=== PATIENT | female | born 1955 | race Caucasian/White ===

== ENCOUNTER 2017-11-13 14:30 | Outpatient (RCR) | payer MEDICAID, SELFPAY ==
--- NOTE | 2017-08-24 08:00 | HP.OTEVAL ---
Patient's Visit Information LUIS MIGUEL SIDDIQUI is a 62 year old F, referred to Occupational Therapy by Uday Roth DO,, with a diagnosis of left wrist fx. Date of Evaluation: 08/23/17 Occupational Therapist: MASSIMO March/Thalia, T - Subjective Subjective: pt states she was walking from her yard to her car and suffered a fall on and had sx for left wrist fx (ORIF) on . pt state she had the cast removed tues. and her hand is tender and sore- pt states she is currently working at [employer]. Pt states she is not using her left hand for any work tasks- Daily tasks are challenging and she is concerned with her limited finger and wrist ROM. - Pain left wrist 5 Pain Intensity Range: 0, 7 - Objective Objective/Observation: pt demo with edeam and limited ROM of left digits and wrist - ROM Forearm: right WNL left supination 0 Wrist: right 65/65 left 20/35 - Strength Surface Room Shop Optician: right 60 left 0 - Edema PIP: right MF 5.5 left 6.5 Other: mcp right 19cm left 20cm - Hand/Wrist Evaluation Total Score of Pain & Functional Sections: 61 - Goals Goal:: pt will demo a increae in left senior power scheduler strength to 40# or greater to increase her ind. with BADLS and IADLS. Goal:: pt will demo a increase in digit ROM by demo the ability for form a composite fist to manipulate fasteners, buttons and zippers. pt will demo a increase in left foream supination to increase her ind. with receiving money by d/c. pt will demo a increase in left wrist ROM by 30 degress to increase her ind. with BADLS and IADLS by d/c Goal:: pt will report no pain greater than 2/10 with use of left hand for BADLS and IADLS Goal:: pt will demo the ability to manipulate money with left hand by D/C to increase her ind.with buying products. Goal:: pt will demo a recuction in left hand/digit edema by 1cm to increase pts functional use of left hand by/D/C Goal:: pt will demo understanding of scar growth and mtg by end of 3rd. session to decrease risk of tendon adhesions or complications. - Rehabilitation General Assessment: s/p ORIF Rehabilitation Potential: Good - Anticipated Interventions Anticipated Interventions: A/AAROM/PROM, Strengthening, Edema Control, Scar Care, Triggerpoint Release, Modalities - Visit Plan Frequency: 2-3x /Week Duration: 6 Weeks General Plan: OT will initiate tx of manula edema mobilization MEM to assist pt in a recuction of left hand edema. Will cont tx with ROM and progress to strengthening as able. This inital eval pt was ed. on PROM of wrist/digits and forea. Along with scar mtg and contrast bath. pt demo understanding. TEXT: Thank you for the opportunity to evaluate your patient. For Medicare and Medicare HMO plans, please review the plan of care and approve it. It will need to be FAXED BACK to us at [phone] for Medicare purposes. Please let me know if there are questions or concerns regarding this plan of care. Physician Signature: Date:
--- NOTE | 2017-11-13 14:57 | HP.OTDCSUM ---
HP - OT D/C Summary It has been my pleasure to treat LUIS MIGUEL SIDDIQUI under orders from Uday Roth DO, for the diagnosis of left wrist fx for a total of 20 visit(s). Please see the following information for a summary of their discharge status. - Overall Improvement % Improvement: 75 - Objective Objective/Function: Completed reassessment. Noted no pain. ROM measurements taken and are as follows: L wrist flex 0-57, l ext 0-45, MCP L (2-5th) 17-64, 11-72, 7-71, 23-72; L PIP (2-5th) 2-5th 0-82, 0-92, 11-92, 7-78. Completed strength assessment as follows on foundation relations manager R 51, L 40; lateral R 8, L 7; three jaw R 7, L 5; tip pinch R 5, L 4. Pain 0/10 and minimal. Wrist appeared stiff. Previous reassessment last session. Measurements were as follows: ROM is as follows: flexion R 0-85, L 0-66; ext R 0-46, L 0-45. L D2 MCP 5-72, L PIP 0-85. Strength measurements are as follows: foundation relations manager R 81, L 19; lateral R 14, L 8; three jaw R 9, L 6; tip R 7, L 5. Some decreased ROM measurements frm last session compared to todays but is to continue HEP to address. - Goals Patient Goals: Regain Mobility, Regain Strength, Decrease Pain, Decrease Swelling/Stiffness, Improve Fine Motor Skills, Use Hand/Wrist/Arm Normally Again, Increase ROM Goal:: pt will demo a increae in left foundation relations manager strength to 40# or greater to increase her ind. with BADLS and IADLS. Goal:: pt will demo a increase in digit ROM by demo the ability for form a composite fist to manipulate fasteners, buttons and zippers. pt will demo a increase in left foream supination to increase her ind. with receiving money by d/c. pt will demo a increase in left wrist ROM by 30 degress to increase her ind. with BADLS and IADLS by d/c Goal:: pt will report no pain greater than 2/10 with use of left hand for BADLS and IADLS Goal:: pt will demo the ability to manipulate money with left hand by D/C to increase her ind.with buying products. Goal:: pt will demo a recuction in left hand/digit edema by 1cm to increase pts functional use of left hand by/D/C Goal:: pt will demo understanding of scar growth and mtg by end of 3rd. session to decrease risk of tendon adhesions or complications. - Plan Plan: Pt. will be d/c' d today. She is doing well and pain is minmal. She is to contact with questions and concerns and continue HEP. - D/C Information If there are questions or concerns regarding this patient's occupational therapy, please fell free to call me at [phone]. Thank you for the referral of this patient. Sincerely, Fouzia Ulrich
== END 2017-11-13 19:00 | disposition home or self-care (01) ==
LOC: OT 14:30
PROVIDERS: Family Provider Internal Medicine; PCP Internal Medicine; Visit Provider Orthopaedic Surgery
DX: Z98.890 Other specified postprocedural states (principal)
CPT/HCPCS: 97018; 97110; 97140; 97166; 97530; 97760

== ENCOUNTER 2018-04-05 15:45 | Emergency (ER) | payer MEDICAID, SELFPAY ==
[2018-04-05 15:45] VITALS: BP 158/93; PULSE 88; RESP 18; TEMP 36.7; O2SAT 98; BMI 28.3
--- NOTE | 2018-04-05 15:58 | ED.DEP ---
ED Disposition - Plan for ED Patient: Chief Complaint: Flank Pain Instructions: ED Shingles Prescriptions: Hydrocodone Bitart/Apap 5-325 [[place] 5MG-325MG] 1 tablet PO Q4H PRN PRN 2 Days #10 tablet PRN Reason: Pain Acyclovir 800 mg PO 5X/DAY #7 days Referrals: Marielle Oewns MD [Primary Care Provider] -
--- NOTE | 2018-04-05 16:00 | DCINST.ED_ITS ---
ED Disposition - Plan for ED Patient: Chief Complaint: Flank Pain Instructions: ED Shingles Prescriptions: Hydrocodone Bitart/Apap 5-325 [[place] 5MG-325MG] 1 tablet PO Q4H PRN PRN 2 Days # 10 tablet PRN Reason: Pain Acyclovir 800 mg PO 5X/DAY #7 days Referrals: Marielle Owens MD [Primary Care Provider] -
--- NOTE | 2018-04-05 16:04 | ED.DCSUM_ITS ---
- ER Visit Summary Date of Service: 04/05/18 Chief Complaint: Left flank pain History of Present Illness: The patient is a 62 F presenting with left flank pain which started yesterday. She states pain starts in the left back and radiates to the left lower quadrant. She has no nausea, vomiting, diarrhea. No fever. No urinary complaints. No previous similar symptoms. No other complaints. Physical Examination: Vitals are stable. Patient is afebrile. Alert no acute distress. HEENT exam is unremarkable. Neck is supple. Lungs are clear and equal bilaterally. Heart is regular rate and rhythm. Abdomen is soft nontender nondistended. No rebound or guarding Back: Erythematous rash with small vesicles consistent with shingles left flank. Extremities are unremarkable. Skin is warm and dry. No focal neurologic deficit. Remainder of exam is unremarkable. Emergency Department Course and Treatment: Patient was given a prescription for acyclovir and [place]. She is advised to follow-up with her primary care physician. Advised return to ED if worsening complaints. Disposition: Discharge home Impression: Herpes zoster This note was generated with [employer] dictation software. It may contain incorrect words, spelling, and punctuation that were not noted in review of the chart prior to signing ED Disposition - Plan for ED Patient: Chief Complaint: Flank Pain Instructions: ED Shingles Prescriptions: Hydrocodone Bitart/Apap 5-325 [[place] 5MG-325MG] 1 tablet PO Q4H PRN PRN 2 Days # 10 tablet PRN Reason: Pain Acyclovir 800 mg PO 5X/DAY #7 days Referrals: Marielle Owens MD [Primary Care Provider] -
[2018-04-05] MEDS: Acyclovir 800 MG Tablet PO (16:14)
== END 2018-04-05 16:16 | disposition home or self-care (01) ==
PROVIDERS: Emergency Provider Emergency Medicine; Family Provider Internal Medicine; PCP Internal Medicine
DX: B02.9 Zoster without complications (principal); K21.9 Gastro-esophageal reflux disease without esophagitis
CPT/HCPCS: 99283

== ENCOUNTER 2018-07-24 08:47 | Day surgery (SDC) | payer MEDICAID, SELFPAY ==
[2018-06-28 10:28] VITALS: BP 147/83; PULSE 75; RESP 14; TEMP 36.2; O2SAT 97; BMI 28.1
[2018-07-24 09:26] VITALS: BP 123/77; PULSE 70; RESP 16; TEMP 36.5; O2SAT 95; BMI 28.1
--- NOTE | 2018-07-24 11:18 | DCINST_ITS ---
Discharge Diet: No Restrictions - leave dressing in place until seen in postop visit, follow up in 2 weeks, change dressing if gets dirty/soiled/wet, call with concerns Discharge Activity: May Not Drive May shower in (days): 1 Ice area for (Minutes): 20 - Every hour while awake. Weight Bearing Status: Weight bearing as tolerated Keep extremity elevated above heart level: Operative Extremity Call your doctor if your incision/area has: Continuous Slow Oozing, Sudden Increased Bleeding, Increased Pain/ Swelling, Increased Redness, Foul Smelling Discharge Call your doctor if you observe: Fever of 101 or Higher, Coldness, Increased Pain, Numbness or Tingling, Change in Color, Calf discomfort Allergies/Adverse Reactions: Allergies meperidine [From Demerol] Adverse Reaction (Verified 07/11/18 15:16) Nausea/Vom/Diarrhea morphine Adverse Reaction (Verified 07/11/18 15:16) Nausea Medications to take at Discharge Alendronate Sodium 35 mg PO MO 06/30/17 Fluticasone 0.05% [Flonase Nasal [place]] 1 spray NASAL DAILY PRN 06/30/17 Loratadine 10 mg PO DAILY PRN 06/30/17 Multivitamin [Multiple Vitamins] 1 ea PO DAILY 07/09/17 Omeprazole [Prilosec] 20 mg PO DAILY 07/09/17 omega 5-gcr-[id number]-fish oil 1,000 mg (120 mg-180 mg) capsule 1 cap PO DAILY 06/06/18 Ascorbic Acid [Vitamin C] 500 mg PO DAILY 06/21/18 Cholecalciferol (Vitamin D3) [Vitamin D3] 1,000 unit PO DAILY 06/21/18 Zinc 50 mg PO DAILY 06/21/18 Acetaminophen/Codeine #3 [Tylenol #3 Tablet] 1 - 2 tablet PO Q6H PRN PRN #30 tablet 07/24/18 The following prescriptions were given: Acetaminophen/Codeine #3 [Tylenol #3 Tablet] 1 - 2 tablet PO Q6H PRN PRN #30 tablet PRN Reason: Pain Primary Care Physician: Marielle Owens MD [Primary Care Provider] - Test Results: Test results from this visit will be discussed in further detail at your follow- up appointment, if applicable. Please Follow Up With: Lyla Pryor, - [phone]
--- NOTE | 2018-07-24 11:18 | PCM.OPRPT ---
Report of Operation Date of Procedure: 07/24/18 Pre-Operative Diagnosis: right carpal tunnel syndrome Post-Operative Diagnosis: same Surgery/Procedure Performed:: right carpal tunnel release Type of Anesthesia:: Melita Corral Anesthesiologist: Fran Madrigal Specimen's removed: none Estimated Blood Loss (mL): none Fluids Replaced: 400ml lr Description of Procedure: Preoperative note Patient is a 63 year old patient with nerve conduction study confirming carpal tunnel syndrome. Patient failed conservative treatment for her carpal tunnel elected proceed with right carpal tunnel release. Risks benefits and alternatives surgery discussed with patient. Risks including but not limited to blood loss, blood clot, infection, neurovascular injury, failure procedure, loss of life and loss of limb. Patient is aware like proceed with right carpal tunnel release. Operative note Patient seen and examined preoperative holding area. right hand was marked. History and physical and consent reviewed. Patient was brought to the operating room placed supine on the operating table. Sign in, anesthesia, antibiotics were administered. right upper extremity was prepped and draped after Melita block was initiated. All bony prominences well-padded SCDs placed on bilateral lower extremities. We marked out our incisions for our carpal tunnel release at the intersection of Hellen's line in the fourth ray flexed. We extended about a centimeter and a half. Timeout was performed. We then checked ensure that the Melita block was working with pickups which it was not so we performed a local block of 10cc 1% lidocaine. We then used a 15 blade to make a skin incision. We then dissected down tenotomy syllable of the transverse carpal ligament. We then used a new 15 blade cut through the transverse carpal ligament down to the level of the median nerve. We then further released the median nerve the combination of the 15 blade and tenotomies. The nerve was grayish in color and adherent to the transverse carpal ligament volarly. We released the transverse carpal ligament distally to the fat pad and then proximally under standard technique. We then palpated to ensure that we released all of the transverse carpal ligament which we did. We irrigated the incision with copious amounts of sterile saline. All bleeders were coagulated. The incision was closed with interrupted 4-0 nylon stitches. Tourniquet was deflated for total working time of 6 minutes. Patient tolerated procedure well there were no complications. Patient transferred to recovery room in stable condition. Postoperative note Hospital pharmacy has prescription Leave dressing clean dry and intact Follow-up in 2 weeks Call with concerns This note was generated with [employer] dictation software. It may contain incorrect words, spelling, and punctuation that were not noted in checking the note before signing
[2018-07-24] MEDS: Mupirocin Ointment 22gm Tube 1 APPLIC (11:35)
[2018-07-24 11:50] VITALS: BP 123/77; BP 139/86; PULSE 71; RESP 16; TEMP 36.4; O2SAT 99
[2018-07-24 11:55] VITALS: BP 123/77; BP 143/84; PULSE 72; RESP 16; O2SAT 94
[2018-07-24 12:00] VITALS: BP 123/77; BP 143/84; PULSE 67; O2SAT 97
[2018-07-24 12:05] VITALS: BP 123/77; BP 144/89; PULSE 64; RESP 16; TEMP 36.8; O2SAT 98
[2018-07-24 12:31] VITALS: BP 123/77
== END 2018-07-24 12:33 | disposition home or self-care (01) ==
LOC: SDC 08:47 → AC 08:47
PROVIDERS: Family Provider Internal Medicine; PCP Internal Medicine; Referring Provider Orthopaedic Surgery; Visit Provider Orthopaedic Surgery
PROC: (CPT 64721; principal; 2018-07-24 10:25)
DX: G56.01 Carpal tunnel syndrome, right upper limb (principal); M81.8 Other osteoporosis without current pathological fracture; M19.90 Unspecified osteoarthritis, unspecified site; K21.9 Gastro-esophageal reflux disease without esophagitis; Z91.09 Other allergy status, other than to drugs and biological substances; Z79.899 Other long term (current) drug therapy; Z85.41 Personal history of malignant neoplasm of cervix uteri; Z87.891 Personal history of nicotine dependence
CPT/HCPCS: 64721; J7120; J2405

== ENCOUNTER 2018-11-11 15:30 | Outpatient (RCR) | payer MEDICAID, SELFPAY ==
[2018-10-17 15:10] VITALS: BMI 28.1
--- NOTE | 2018-10-24 08:37 | HP.OTEVAL_ITS ---
Patient's Visit Information LUIS MIGUEL SIDDIQUI is a 63 year old F, referred to Occupational Therapy by ISAEL Barbour, with a diagnosis of right CTS. Date of Evaluation: 10/23/18 Occupational Therapist: MASSIMO March/Thalia, CHT - Subjective Subjective: This 63 year old female was seen for initial OT eval following a right CTR on 07/24/18. Pt states she struggled with tingling/numbness for over a year. She states she tried wearing a brace at night, but still had symptoms. Pt decided on sx. Today she states her symptoms at night are gone but she still has scar pain and sharp shooting pain. pt would like to decrease her pain so she doesn't have to stop in the middle of tasks. - ADLs Dressing: Bra, Button shirt, Pants, Socks, Shoes Fasteners: Tie shoes, Zippers Eating: Use silverware, Cut food Toileting: Manage clothing, Perineal care Grooming: Squeeze toothpaste on, [place] teeth Kitchen: Open jars, Open bottle caps, Load/unload corporate development intern Comments: no lift after 10# at work - Pain right hand 5 Pain Intensity Range: 0, 8 - ROM Wrist: right 70/77 left 60/60 - Strength Transition Social Worker: right 30# left 45# Lateral Pinch: right 8# left 16# Tripod Pinch: right 2# left 14# Strength Comments: pt demo a decrease in right thermospray operator/pinch strength - Sensation Thumb: right 2.83 left 2.83 Index: right 2.83 left 2.83 Middle: right 3.22 left 2.83 Ring: right 3.22 left 2.83 Little: right 2.83 left 2.83 - Quick DASH-Disab of Arm,Shoulder& Hand Quick DASH Score: 38.3325 - Hand/Wrist Evaluation Total Score of Pain & Functional Sections: 60 - Goals Goal:: PT will demo an increase in thermospray operator strength by 20# to increase independent with basic occupations of daily living to return pt to PLOF by D/C. Pt will demo an increase in lateral and tripod pinch by 2# to increase pts independent with opening baggies, containers at PLOF by D/C. Goal:: Pt will demo an increase in wrist ROM equal to unaffected wrist to return pt to PLOF with grooming, dressing and home mtg tasks by D/C. Goal:: Pt will report pain no greater than 1/10 with use of affected hand with BADLs and IADLs by d/c. Goal:: Pt will demo understanding of scar mtg. by end of 2nd session to increase tissue extensibility to limit scar adhesions and allow full tendons function by d/c. - Rehabilitation General Assessment: pt presents with scar hytrophy/sensitivity following a right CTR 2018. pt states pain and weakness limit her ind. use of her right hand for functional tasks. Pt would benefit from skillled OT services 1-2x week for 4 weeks. Today therapy ed. pt on scar mtg tasks and end range stretch of wrist Flex/ext. Pt ed. on scar development and given handout. Pt demo understanding and agrees to POC. Rehabilitation Potential: Good - Anticipated Interventions Anticipated Interventions: A/AAROM/PROM, Strengthening, Triggerpoint Release, Desensitization, Sensory Retraining, Modalities, Joint Protection/Energy Conservation - Visit Plan Frequency: 1-2x /Week Duration: 4 Weeks TEXT: Thank you for the opportunity to evaluate your patient. For Medicare and Medicare HMO plans, please review the plan of care and approve it. It will need to be FAXED BACK to us at [phone] for Medicare purposes. Please let me know if there are questions or concerns regarding this plan of care. Physician Signature: Date:
--- NOTE | 2018-11-11 15:45 | HP.OTDCSUM_ITS ---
HP - OT D/C Summary It has been my pleasure to treat LUIS MIGUEL SIDDIQUI under orders from ISAEL Barbour, for the diagnosis of right CTS for a total of 8 visit(s). Please see the following information for a summary of their discharge status. - Overall Improvement % Improvement: 80 - Objective Objective/Function: right pattern marker 37#. right lat. pinch 6#. right trip. pinch 4# - Goals Patient Goals: Regain Strength, Decrease Pain, Improve Fine Motor Skills, Decrease Tingling/Numbness Goal:: PT will demo an increase in pattern marker strength by 20# to increase independent with basic occupations of daily living to return pt to PLOF by D/C. Pt will demo an increase in lateral and tripod pinch by 2# to increase pts independent with opening baggies, containers at PLOF by D/C. Goal:: Pt will demo an increase in wrist ROM equal to unaffected wrist to return pt to PLOF with grooming, dressing and home mtg tasks by D/C. Goal:: Pt will report pain no greater than 1/10 with use of affected hand with BADLs and IADLs by d/c. Goal:: Pt will demo understanding of scar mtg. by end of 2nd session to increase tissue extensibility to limit scar adhesions and allow full tendons function by d/c. - Plan Plan: D/C with HEP - D/C Information Discharge Comments: PT was seen for 6 visits following a right CTR. Pt reports her scar sensitivity has decreased and only tender when she pushes up or puts pressure on a flat hand. pt states she can perform her ADLs and IADLs. Pt states she is ind. with her work tasks. pt reports pain at IP and MP region of her right thumb with resistance. Pt does does states use of tape over IP and MP does control her pain. pt has met goals in OT and is D/C with HEP at this time. If there are questions or concerns regarding this patient's occupational therapy, please fell free to call me at [phone]. Thank you for the refe rral of this patient. Sincerely, Amie Mar, OTR/L, CHT
== END 2018-11-11 19:00 | disposition home or self-care (01) ==
LOC: OT 15:30
PROVIDERS: Family Provider Internal Medicine; PCP Internal Medicine; Referring Provider Physician Assistant; Visit Provider Physician Assistant
DX: Z98.890 Other specified postprocedural states (principal)
CPT/HCPCS: 97035; 97110; 97140; 97166; 97530

== ENCOUNTER → 2019-02-26 16:18 | Outpatient (CLI) | payer MEDICAID, SELFPAY ==
[2018-12-19 15:03] VITALS: BMI 28.1
[2019-02-26 18:52] LABS: Thyroid Stim Hormone (TSH) 2.02 uIU/mL (0.358-3.74)
== END ==
PROVIDERS: Family Provider Family Medicine; PCP Family Medicine; Referring Provider Family Medicine; Visit Provider Family Medicine
DX: R23.2 Flushing (principal)
CPT/HCPCS: 36415; 84443

== ENCOUNTER 2019-03-24 08:09 | Day surgery (SDC) | payer OTHER, SELFPAY ==
[2019-03-05 14:39] VITALS: BMI 28.1
--- NOTE | 2019-03-11 11:17 | HP_ITS ---
Intake Vital Signs 03/05/19 Body Mass Index (BMI) 28.1 03/05/19 Height 5 ft 4 in 03/05/19 Weight: 162 lb 03/05/19 Body Mass Index (BMI) 27.8 03/05/19 Blood Pressure 123/80 H 03/05/19 Blood Pressure Location Rt brachial 03/05/19 Respiratory Rate 14 03/05/19 Pulse Rate 71 03/05/19 Pulse Source Monitor 03/05/19 Temperature 98.2 F 03/05/19 Pulse Ox 97 03/05/19 Oxygen Delivery Method room air Intake Visit Reasons: Gastroesophageal reflux disease (GERD) Chief Complaint: back pain Last Inserter Required: No Is patient in pain?: No Allergies meperidine [From Demerol] Adverse Reaction (Verified 03/05/19 14:32) Nausea/Vom/Diarrhea morphine Adverse Reaction (Verified 03/05/19 14:32) Nausea Medications Fluticasone 0.05% [Flonase Nasal [place]] 1 spray NASAL DAILY PRN 06/30/17 [History Confirmed 03/05/19] Multivitamin [Multiple Vitamins] 1 ea PO DAILY 07/09/17 [History Confirmed 03/05/19] Omeprazole [Prilosec] 20 mg PO DAILY 07/09/17 [History Confirmed 03/05/19] Ascorbic Acid [Vitamin C] 500 mg PO DAILY 06/21/18 [History Confirmed 03/05/19] Cholecalciferol (Vitamin D3) [Vitamin D3] 1,000 unit PO DAILY 06/21/18 [History Confirmed 03/05/19] omega 3-xhf-yrf-fish oil 1,000 mg (120 mg-180 mg) capsule 1 cap PO DAILY 03/05/19 [History Confirmed 03/05/19] PFSH Medical History GERD (gastroesophageal reflux disease) (Acute) Thoracic neuritis (Acute) Adult idiopathic generalized osteoporosis (Acute) Arthritis (Acute) Environmental allergies (Acute) Segmental and somatic dysfunction of thoracic region (Acute) Aftercare following surgery of the musculoskeletal system (Acute) Surgical History Hx of colonoscopy (Acute) History of carpal tunnel surgery (Acute) History of dental surgery (Acute) Hx of cholecystectomy (Acute) Hx of hysterectomy (Acute) Left wrist ORIF (Acute) gallbladder (Inactive) hysterectomy (Inactive) Family History Mother Cancer Sister Diabetes Cancer Heart disease Hypertension Kidney disease Social History (Updated 03/11/19 @ 11:18 by Sarthak Brown MD) Smoking Status: Former smoker how long ago did patient quit smokin second hand exposure: No alcohol intake: current alcohol intake frequency: a few times a week substance use type: does not use caffeine: Yes what type of physical activity do you participate in: none HPI HPI HPI: LUIS MIGUEL SIDDIQUI, is a 63 F who presents to the office today for HPI HPI Surgical H&P: Yes HPI: LUIS MIGUEL SIDDIQUI, is a 63 F who presents to the office today for evaluation of reflux. Patient has been on a proton pump inhibitor for approximately 3 years she has had increasing problems with the reflux and is now starting to have waterbrash symptoms particularly in the morning. Patient has not noticed any signs of dysphagia patient states that her symptoms are worse with red sauces spices and while laying down. She has never had an upper endoscopy. ROS General General: Yes weight change; no appetite, fatigue, colon cancer, breast cancer or weakness HEENT HEENT: Yes swollen glands; no difficulty swallowing, eye injury, eye surgery or hoarseness Endo Endocrine: No thyroid disease, diabetes mellitus, thyroid cancer, Hair loss, heat intolerance or cold intolerance Skin Skin: Yes changing moles; no rash Breast Breast: No left breast lump, right breast lump, nipple discharge, breast pain, abnormal mammogram, abnormal US or breast enlargement Musc Musculoskeletal: Yes arthritis and rheumatoid arthritis; no back problems, gout or joint pain Cardio Cardiovascular: No murmur, pacemaker, heart disease, atrial fibrillation, high blood pressure, heart attack, heart stent, palpitations, shortness of breat with exertion or chest pain Psych Psychiatric: No depression, anxiety or hearing voices Resp Respiratory: No shortness of breath, Yes sleep apnea, No cough, No COPD, No asthma, No emphysema, No wheezing Gastro Gastrointestinal: No abdominal pain, Yes nausea or vomiting, No diarrhea, No constipation, No blood in stool, Yes acid reflux, No hemorrhoids, No ulcers, No gallbladder problem, No black,tarry stools Neuro Neurologic: No weakness Exam Const General: no acute distress, well developed, well hydrated Orientation: oriented to person, oriented to place, oriented to time [facility] Head: normocephalic, atraumatic Ears: external ears normal Mouth: moist mucous membranes Eyes Sclera: sclerae normal Pupils: normal by confrontation Neck Neck: no lymphadenopathy noted Neck mass: No Thyroid: thyroid normal, symmetrical Chest Chest palpation & inspection: normal inspection of the chest Breast Palpation: No nipple discharge Resp Effort & Inspection: normal respiratory effort Auscultation: clear to auscultation bilaterally Percussion: percussion normal Cardio Rate: regular rate Rhythm: regular rhythm Heart Sounds: no murmurs GI Palpation: soft, no hepatosplenomegaly, no masses, nontender Rectal Exam: other Other: Rectal exam deferred. Extrem General: normal to inspection, no clubbing, cyanosis or edema Assessment & Plan 1. Gastroesophageal reflux disease, esophagitis presence not specified K21.9 Plan I have discussed the above with the patient. I have offered the patient esophagogastroduodenoscopy for evaluation. I have explained the risks/benefits of the procedure and described the procedure. I have discussed the risks with the patient, including but not limited to: infection, bleeding, perforation of the GI tract requiring emergency surgery, inability to complete the procedure, injury to any internal organs, complications of anesthesia, etc. - the patient understands and agrees to proceed. I have answered all the patient's questions to the patient's satisfaction and the patient has no further questions. The patient has been given instructions for the colon cleansing preparation. Plan Detail Other Medications New: omega 6-gsu-uhu-fish oil 1,000 mg (120 mg-180 mg) (Fish Oil) 1 cap PO DAILY Goals Decrease pain and spasm Increase ability to perform work Barriers Repetitive L arm use at work Coding Level of Care Code Off vis,new,level 3 Diagnoses Gastroesophageal reflux disease, esophagitis presence not specified K21.9 ??Esophagitis presence: esophagitis presence not specified 03/11/19 1118 <Electronically signed by Sarthak hester MD> Date _ Sarthak Brown MD I have re-examined the patient. There are no clinical changes since date of exam.
[2019-03-24 08:26] VITALS: BP 137/85; PULSE 71; RESP 16; TEMP 36.5; O2SAT 100; BMI 28.5
--- NOTE | 2019-03-24 09:15 | EGD_PTH ---
PATIENT: LUIS MIGUEL SIDDIQUI LOC: EN U#:[id number] AGE/SX: 63/F ROOM: RE03/24/[address]: Dr. Sarthak Brown MD : 1955 BED: DIS: 03/24/2019 SPEC #: [id number] RECD: 03/24/19 11:48 STATUS: FIDELINA KASEY #: [id number] DANDRE: 03/24/19 09:[address]: Sarthak Brown DEPT: SURGICAL PATHOLOGY RECD BY: Dereck Otoole ENTERED: 03/24/19 14:54 SP TYPE: EGD BIOPSY OTHR DR: Dr. Demarcus Burnett MD Tissues: Gastric mucous membrane Procedures: Surgery Specimen Level IV HEADER OPERATION: EGD ([facility]) PRE-OP DIAGNOSIS: GERD TISSUE SUBMITTED: Antral biopsy, H. pylori and pathology MICROSCOPIC DIAGNOSIS Antral biopsy: Mild gastritis. See microscopic description and comment. SJ:donnell 7/9/19 COMMENT The results of immunohistochemistry for Helicobacter pylori will be reported separately ([id number]). MICROSCOPIC DESCRIPTION Slides are reviewed. The specimen shows fragments of gastric mucosa with chronic inflammatory cell infiltrates in the lamina propria consisting of lymphocytes and plasma cells, consistent with mild chronic gastritis. Mucosal congestion is also noted. GROSS DESCRIPTION Received in fixative is one container labeled with the patient's name and designated antral biopsy. The specimen consists of two irregular fragments of light [place] soft tissue that in aggregate measure 0.4 x 0.4 x 0.1 cm. The specimen is totally submitted in one cassette. / SJ:rg 03/24/19 TC:3 CPT: 91941
--- NOTE | 2019-03-24 09:15 | IMM_PTH ---
PATIENT: LUIS MIGUEL SIDDIQUI LOC: EN U#:[id number] AGE/SX: 63/F ROOM: RE03/24/[address]: Dr. Sarthak Brown MD : 1955 BED: DIS: 03/24/2019 SPEC #: [id number] RECD: 03/24/19 14:47 STATUS: FIDELINA REQ #: [id number] DANDRE: 03/24/19 09:[address]: Sarthak Brown DEPT: IMMUNOHISTOCHEMISTRY RECD BY: Jyoti Klein ENTERED: 03/24/19 14:47 SP TYPE: IMMUNO OTHR DR: Dr. Demarcus Burnett MD Tissues: Stomach, NOS Procedures: H Pylori (initial) PHYSICIAN & INSTITUTION [place] [id number] SPECIMEN INFORMATION: Tissue Source: Antral biopsy Clinical Info: GERD Specimen Number: [id number] CPT code: 55988 METHODOLOGY: Deparaffinized sections of prefer/formalin-fixed tissue or PAP/DQ stained slides are incubated with monoclonal/polyclonal antibodies/oligonucleotide probes. Localization is made via biotin free immunoperoxidase method. Appropriate controls are performed and reacted as expected. Results on target cell population are indicated in the following table: RESULTS: ANTIBODY / CLONE RESULT Block A H Pylori (polyclonal) negative These tests were developed and their performance characteristics determined by [facility]. They may not have been cleared or approved by the U.S. Food and Drug Administration. The FDA has determined that such clearance or approval is not necessary. INTERPRETATION: A. Antral biopsy: Negative for Helicobacter pylori organisms. ROGER:donnell 03/25/19
--- NOTE | 2019-03-24 09:19 | OP.ENDO_ITS ---
03/24/2019 Demarcus Burnett [address] [place] [address] Re : Upper GI endoscopy procedure for Dinora Mcclain Dear Dr. Burnett This procedure was performed on Sunday, March 24, 2019. My impressions and recommendations are as follows: Impressions : - Normal esophagus. - Z-line regular, 35 cm from the incisors. - Gastritis. Biopsied. - Normal examined duodenum. No specimens collected. Recommendations : - Discharge patient to home. - Resume previous diet. - Continue present medications. - Await pathology results. - Repeat upper endoscopy (date not yet determined) for surveillance based on pathology results. - Return to my office in 1 week. My findings are described in the full procedure note, which is enclosed. If I can be of further assistance, please feel free to contact me at Doctor phone number(s): , Fax: [phone], Work: . Sincerely, MD Sarthak Lizarraga MD 03/24/2019 9:19:15 AM This report has been signed electronically.
[2019-03-24 09:20] VITALS: BP 102/83; BP 137/85; PULSE 67; RESP 16; TEMP 36.1; O2SAT 96
[2019-03-24 09:25] VITALS: BP 109/79; BP 137/85; PULSE 67; RESP 16; O2SAT 92
[2019-03-24 09:30] VITALS: BP 113/81; BP 137/85; PULSE 69; RESP 16; O2SAT 94
[2019-03-24 09:35] VITALS: BP 116/84; BP 137/85; PULSE 62; RESP 16; TEMP 36.4; O2SAT 96
[2019-03-24 09:58] VITALS: BP 137/85
== END 2019-03-24 10:06 | disposition home or self-care (01) ==
LOC: EN 08:09 → AC 08:11
PROVIDERS: Family Provider Family Medicine; PCP Family Medicine; Referring Provider Family Medicine; Visit Provider Surgery
PROC: 0DJ08ZZ Inspection of Upper Intestinal Tract, Via Natural or Artificial Opening Endoscopic (ICD-10-PCS; CPT 43235; principal; 2019-03-24 09:10)
DX: K29.70 Gastritis, unspecified, without bleeding (principal); K21.9 Gastro-esophageal reflux disease without esophagitis; J30.2 Other seasonal allergic rhinitis; Z85.41 Personal history of malignant neoplasm of cervix uteri; Z87.891 Personal history of nicotine dependence
CPT/HCPCS: 43239; 88305; 88342; J7120; J2405

== ENCOUNTER → 2019-04-15 14:28 | Outpatient (CLI) | payer OTHER, SELFPAY ==
[2019-03-24 08:26] VITALS: BMI 28.5
[2019-04-15 16:28] LABS: AST(SGOT) 16 U/L (15-37); Alanine Aminotransfer ALT/SGPT 26 U/L (13-56); Albumin, Serum 3.5 g/dL (3.2-5.0); Alkaline Phosphatase 136 U/L (45-117); Anion Gap 8 (5-15); BUN 17 mg/dL (7-18); Calcium,Total 9.1 mg/dL (8.5-10.1); Chloride 105 mmol/L (98-107); EST Glomerular Filtration Rate 68 mL/min (>60); Est Glom Filt Rate - Afr Amer 82 mL/min (>60); Globulin 3.5 g/dL (2.2-4.2); Glucose 103 mg/dL (74-106); Potassium 3.8 mmol/L (3.5-5.1); Sodium Level 141 mmol/L (136-145)
[2019-04-15 17:08] LABS: Vitamin D,25 Hydroxy 25.9 ng/mL (29.95-100.01)
== END ==
PROVIDERS: Family Provider Family Medicine; PCP Family Medicine; Referring Provider Family Medicine; Visit Provider Family Medicine
DX: E55.9 Vitamin D deficiency, unspecified (principal)
CPT/HCPCS: 36415; 80053; 82306

== ENCOUNTER → 2019-04-19 08:45 | Outpatient (CLI) | payer OTHER, SELFPAY ==
[2019-03-24 08:26] VITALS: BMI 28.5
--- NOTE | 2019-04-19 08:49 | CT_ITS ---
STUDY: CT CHEST WITHOUT CONTRAST REASON FOR EXAM: Female, 63 years old. Pulmonary nodules follow-up RADIATION DOSAGE (If Supplied By Facility): CTDIvol = ( 11.70 ) mGy, DLP = ( 415.09 ) mGycm TECHNIQUE: Transaxial imaging was performed without the administration of intravenous contrast material. Individualized dose optimization techniques were used for this CT. COMPARISON: No previous studies are available for comparison. There is a report of prior study of 06/17/2012. FINDINGS: There is scarring of the left upper lobe apex. There is an irregularly margined solid density of the medial right middle lobe adjacent to the cardiac margin measuring 1.9 x 1.2 cm, stable from the prior report. There is a linear pleural-based density of the left lower lobe consistent with fibrosis. There are several pleural-based 3 mm nodules of the left lower lobe image 86 series 4. There are scattered fibrotic changes of the right upper lobe. There is no demonstrated pleural abnormality. The heart size is normal. There is no pericardial effusion. Normal mediastinum. Normal hilar regions. Normal unenhanced pulmonary arteries. Normal aorta arch and descending thoracic aorta. There are mild degenerative changes of the thoracic spine. Status post cholecystectomy changes are noted. CT/Chest without Contrast IMPRESSION: Left apical pulmonary scarring. Irregularly margined solid density of the medial right middle lobe adjacent to the cardiac margin measuring 1.9 x 1.2 cm, stable from the prior report. Linear pleural-based density of the left lower lobe consistent with fibrosis. There are several pleural-based 3 mm nodules of the left lower lobe image 86 series 4. Scattered fibrotic changes of the right upper lobe. Electronically Signed: Daniel Timmons MD at 16:27 EDT , Service support ,
== END ==
LOC: CT 08:46
PROVIDERS: Family Provider Family Medicine; PCP Family Medicine; Referring Provider Family Medicine; Visit Provider Family Medicine
DX: R91.8 Other nonspecific abnormal finding of lung field (principal)
CPT/HCPCS: 71250

== ENCOUNTER → 2019-06-02 18:00 | Outpatient (CLI) | payer OTHER, SELFPAY ==
[2019-06-05 17:32] LABS: HPV Reflexed? NOT INDICATED
== END ==
PROVIDERS: Family Provider Family Medicine; PCP Family Medicine; Referring Provider Nurse Practitioner Adult Health; Visit Provider Nurse Practitioner Adult Health
DX: Z01.419 Encounter for gynecological examination (general) (routine) without abnormal findings (principal)
CPT/HCPCS: 88175; G0145

== ENCOUNTER → 2019-07-15 15:41 | Outpatient (CLI) | payer OTHER, SELFPAY ==
--- NOTE | 2019-07-15 15:44 | BI_ITS ---
MAMMOGRAPHY - BILATERAL SCREENING REASON FOR EXAM: Female, 64 years old. Routine annual screening examination. PERTINENT HISTORY: Non-contributory. TECHNIQUE: Digital bilateral breast daniela (3D mammographic acquisition) in the CC and MLO projections. 2-D mediolateral oblique (MLO) and craniocaudad (CC) views of both breasts were obtained. CAD: Full Field Digital Mammography with Computer Added Detection was performed. COMPARISON: Comparison is made with prior outside examination dated May 28, 2018. FINDINGS: Breast Composition: There are scattered areas of fibroglandular density. There are no dominant masses or suspicious calcifications. Stable small bilateral benign-appearing axillary lymph nodes. No other significant abnormalities are identified. There has been no significant change since the prior study. BI/SCREEN MAMM (CAD) W/DANIELA BILAT IMPRESSION: Stable bilateral screening mammogram. Yearly follow-up mammogram recommended. (A) ASSESSMENT CATEGORY: BIRADS Category 2: Benign. A letter regarding these results will be sent to the patient by the facility within 30 days. Approximately 10% of breast cancers are not detected by mammography. A normal mammogram should not delay biopsy of a clinically suspicious abnormality. [id number] Electronically Signed: Andre Acuna, at 8:29 EDT , Service support ,
--- NOTE | 2019-07-15 16:04 | BD_ITS ---
STUDY: DUAL ENERGY X-RAY ABSORPTIOMETRY / DXA REASON FOR EXAM: Female, 64 years old. The patient is postmenopausal. Loss of height. TECHNIQUE: Bone Mineral Density (BMD) measurements of lumbar spine and bilateral hips were obtained. COMPARISON: None. FINDINGS: Lumbar Spine (L1-L4): g/cm2 (1.025) / T-score (-1.3) / Z-score (0.1) Findings are suggestive of osteopenia with a low fracture risk. Left Femur Total: g/cm2 (0.795) / T-score (-1.7) / Z-score (-0.7) Left Femoral Neck: g/cm2 (0.783) / T-score (-1.8) / Z-score (-0.5) Right Femur Total: g/cm2 (0.768) / T-score (-1.9) / Z-score (-0.9) Right Femoral Neck: g/cm2 (0.922) / T-score (0.8) / Z-score (0.5) BD/Dexa Bone Density Study IMPRESSION: The patient is considered osteopenic as outlined below according to World Joseph Organization (WHO) criteria with a moderate fracture risk. Reference Information: The T-score is the number of standard deviations above or below the standard which is normal for young adults at their peak bone mineral density. The World Health Organization (WHO) interprets the T-scores as follows: Above -1 Normal bone density Between -1 and -2.5 Osteopenia Equal to / or below -2.5 Osteoporosis As a practical clinical guideline, osteopenia may be graded as follows: Mild -1 through -1.5 Moderate -1.6 through -2.0 Severe -2.1 through -2.4 The Z-score is the number of standard deviations above or below age-matched controls. A Z-score of less than -1.5 would be considered abnormal. References: 1. NIH Osteoporosis and Related Bone Diseases http://www.osteo.org 2. International Society for Clinical Densitometry http://www.iscd.org 3. National Osteoporosis Foundation http://www.nof.org Electronically Signed: Andre Acuna, at 16:01 EDT , Service support ,
== END ==
PROVIDERS: Family Provider Family Medicine; PCP Family Medicine; Referring Provider Nurse Practitioner Adult Health; Visit Provider Nurse Practitioner Adult Health
DX: Z78.0 Asymptomatic menopausal state (principal); Z12.31 Encounter for screening mammogram for malignant neoplasm of breast
CPT/HCPCS: 77063; 77067; 77080

== ENCOUNTER → 2019-08-12 16:21 | Outpatient (CLI) | payer OTHER, SELFPAY ==
[2019-08-12 17:59] LABS: AST(SGOT) 21 U/L (15-37); Alanine Aminotransfer ALT/SGPT 31 U/L (13-56); Albumin, Serum 3.6 g/dL (3.2-5.0); Alkaline Phosphatase 149 U/L (45-117); Anion Gap 7 (5-15); BUN 19 mg/dL (7-18); BUN/Creat Ratio 19.8 RATIO (10-20); Calcium,Total 8.9 mg/dL (8.5-10.1); Chloride 103 mmol/L (98-107); Creatinine, Serum 0.96 mg/dL (0.55-1.02); EST Glomerular Filtration Rate 63 mL/min (>60); Est Glom Filt Rate - Afr Amer 76 mL/min (>60); Globulin 3.6 g/dL (2.2-4.2); Glucose 132 mg/dL (74-106); Phosphorus 3.2 mg/dL (2.5-4.9); Potassium 3.8 mmol/L (3.5-5.1); Protein, Total 7.2 g/dL (6.4-8.2); Sodium Level 138 mmol/L (136-145)
[2019-08-12 18:26] LABS: Vitamin D,25 Hydroxy 37.5 ng/mL (29.95-100.01)
[2019-08-13 09:37] LABS: GGTP 28 U/L (5-55)
[2019-08-13 09:47] LABS: Hemoglobin A1c 5.8 % (4.2-6.3)
== END ==
PROVIDERS: Family Provider Family Medicine; PCP Family Medicine; Referring Provider Family Medicine; Visit Provider Family Medicine
DX: M85.80 Other specified disorders of bone density and structure, unspecified site (principal); E55.9 Vitamin D deficiency, unspecified; R73.09 Other abnormal glucose; R74.8 Abnormal levels of other serum enzymes
CPT/HCPCS: 36415; 80053; 82306; 82977; 83036; 84100

== ENCOUNTER → 2019-08-18 14:53 | Outpatient (CLI) | payer OTHER, SELFPAY ==
[2019-08-18 18:17] LABS: AST(SGOT) 24 U/L (15-37); Alanine Aminotransfer ALT/SGPT 31 U/L (13-56); Albumin, Serum 3.5 g/dL (3.2-5.0); Alkaline Phosphatase 144 U/L (45-117); Anion Gap 5 (5-15); BUN 19 mg/dL (7-18); BUN/Creat Ratio 23.2 RATIO (10-20); Calcium,Total 8.9 mg/dL (8.5-10.1); Chloride 105 mmol/L (98-107); Creatinine, Serum 0.82 mg/dL (0.55-1.02); EST Glomerular Filtration Rate 75 mL/min (>60); Est Glom Filt Rate - Afr Amer 91 mL/min (>60); Globulin 3.6 g/dL (2.2-4.2); Glucose 95 mg/dL (74-106); Potassium 3.9 mmol/L (3.5-5.1); Protein, Total 7.1 g/dL (6.4-8.2); Sodium Level 138 mmol/L (136-145)
== END ==
PROVIDERS: Family Provider Family Medicine; PCP Family Medicine; Referring Provider Family Medicine; Visit Provider Family Medicine
DX: R74.8 Abnormal levels of other serum enzymes (principal)
CPT/HCPCS: 36415; 80053

== ENCOUNTER → 2019-09-08 16:45 | Outpatient (CLI) | payer OTHER, SELFPAY ==
[2019-09-08 17:59] LABS: Absolute Neutrophil Count 9.2 X10^3/uL (2.0-7.7); Basophil# 0.06 X10^3/uL; Basophil% 0.5 % (0-1); Eosinophil# 0.13 X10^3/uL; Eosinophils% 1.1 % (0-5); Hematocrit 40.4 % (37-47); Hemoglobin 13.5 g/dL (12.0-15.0); Lymphocyte % 17.8 % (19-41); Mean Corp Hgb Conc 33.4 g/dL (32-36); Mean Corpuscular Hgb 29.9 pg (27.0-32.0); Mean Corpuscular Volume 89.4 fL (81-99); Mean Platelet Vol. 10.2 fl (6.2-12.0); Monocyte# 0.76 X10^3/uL; Monocyte% 6.2 % (0-10); NRBC Flagged by Analyzer 0 % (0-5); Neutrophil # 9.15 X10^3/uL (2.7-7.7); Platelet Count 238 K/mm3 (150-450); RBC Distribution Width CV 13.7 % (11.6-14.6); RBC Distribution Width SD 44.4 fl (35.1-43.9); Red Blood Count 4.52 M/mm3 (4.2-5.4); White Blood Count 12.4 K/mm3 (4.4-11.0)
[2019-09-08 18:02] LABS: AST(SGOT) 22 U/L (15-37); Alanine Aminotransfer ALT/SGPT 26 U/L (13-56); Albumin, Serum 3.8 g/dL (3.2-5.0); Alkaline Phosphatase 152 U/L (45-117); Anion Gap 7 (5-15); BUN 16 mg/dL (7-18); BUN/Creat Ratio 15.8 RATIO (10-20); Calcium,Total 9.5 mg/dL (8.5-10.1); Chloride 104 mmol/L (98-107); Creatinine, Serum 1.01 mg/dL (0.55-1.02); EST Glomerular Filtration Rate 59 mL/min (>60); Est Glom Filt Rate - Afr Amer 71 mL/min (>60); Globulin 3.7 g/dL (2.2-4.2); Glucose 133 mg/dL (74-106); Potassium 3.5 mmol/L (3.5-5.1); Protein, Total 7.5 g/dL (6.4-8.2); Sodium Level 138 mmol/L (136-145)
== END ==
PROVIDERS: Family Provider Family Medicine; PCP Family Medicine; Referring Provider Family Medicine; Visit Provider Family Medicine
DX: K57.92 Diverticulitis of intestine, part unspecified, without perforation or abscess without bleeding (principal)
CPT/HCPCS: 36415; 80053; 85025

== ENCOUNTER 2019-09-09 11:50 | Emergency (ER) | payer OTHER, SELFPAY ==
[2019-09-09 11:51] VITALS: BP 159/90; PULSE 82; RESP 18; TEMP 36.6; O2SAT 100; BMI 28.3
--- NOTE | 2019-09-09 12:12 | CT_ITS ---
STUDY: CT ABDOMEN AND PELVIS WITHOUT CONTRAST REASON FOR EXAM: Female, 64 years old. LLQ ABD PAIN, ON CIPRO/FLAGYL FOR DIVERTICULITIS, GERD, SURG-TYRONE, HYSTER RADIATION DOSAGE (If Supplied By Facility): CTDIvol = ( 10.71 ) mGy, DLP = ( 498.77 ) mGycm TECHNIQUE: Transaxial images were obtained from the dome of the diaphragm to the symphysis pubis without oral contrast, and without intravenous contrast. Sagittal and coronal images were reconstructed. Individualized dose optimization techniques were used for this CT. COMPARISON: 04/19/2019 FINDINGS: Left lower lobe nodular density measuring 1.1 x 0.9 cm, also visualized on the prior CT scan. The rest of visualized lung bases are unremarkable. The visualized portions of the heart are within normal limits. Normal liver. There are surgical clips in the gallbladder fossa consistent with a prior cholecystectomy. Normal spleen. Normal pancreas. Normal bilateral adrenal glands. Normal right kidney. Normal left kidney. Normal visualized stomach. Normal small intestine. There is diverticulosis, with thickening of the colon wall, and pericolonic inflammation changes consistent with acute diverticulitis along the proximal sigmoid colon. No gross abscess. The appendix is visualized and appears normal. There is diffuse atherosclerotic calcification of the abdominal aorta, without a demonstrated aneurysm. Normal inferior vena cava. Normal retroperitoneum. Normal urinary bladder. There is a left-sided inguinal hernia containing adipose tissue. There are diffuse degenerative changes of the visualized lumbar spine. CT/Abdomen/Pelvis without Cont IMPRESSION: Proximal sigmoid diverticulitis. No gross abscess. Left lower lobe nodular density measuring 1.1 x 0.9 cm, also visualized on the prior CT scan. Follow-up as per Fleischner Society recommendation. Fleischner Society Recommendations for Follow-up and Management of Nodules Smaller than 8 mm Detected Incidentally at Nonscreening CT. Nodule size < or = 4 mm: Low-Risk Patient - No follow-up needed. High-Risk Patient - Follow-up CT at 12 months; if unchanged, no further follow-up. Nodule size > 4-6 mm: Low-Risk Patient - Follow-up CT at 12 months; if unchanged, no further follow-up. High-Risk Patient - Initial follow-up CT at 6-12 months then at 18-24 months if no change. Nodule size > 6-8 mm: Low-Risk Patient - Initial follow-up CT at 6-12 months then at 18-24 months if no change. High-Risk Patient - Initial follow-up CT at 3-6 months then at 9-12 and 24 months if no change. Nodule size > 8 mm: Low-Risk Patient - Follow-up CT at around 3,9 and 24 months. Dynamic contrast-enhanced CT, PET and/or biopsy. High-Risk Patient - Same as for low-risk patient. Low-Risk = Minimal or absent history of smoking and of other known risk factors. High-Risk = History of smoking or of other known risk factors. Electronically Signed: Kaden Larkin MD at 13:29 EST Tel [phone], Service support ,
[2019-09-09 12:28] LABS: Absolute Lymphocyte Count 1.68 X10^3/uL (0.83-4.51); Absolute Neutrophil Count 6.8 X10^3/uL (2.0-7.7); Basophil# 0.04 X10^3/uL; Basophil% 0.4 % (0-1); Eosinophil# 0.13 X10^3/uL; Eosinophils% 1.4 % (0-5); Hematocrit 39.2 % (37-47); Hemoglobin 13.5 g/dL (12.0-15.0); Lymphocyte # 1.68 X10^3/ul (4.0); Lymphocyte % 18.3 % (19-41); Mean Corp Hgb Conc 34.4 g/dL (32-36); Mean Corpuscular Hgb 30.5 pg (27.0-32.0); Mean Corpuscular Volume 88.7 fL (81-99); Mean Platelet Vol. 9.5 fl (6.2-12.0); Monocyte# 0.57 X10^3/uL; Monocyte% 6.2 % (0-10); NRBC Flagged by Analyzer 0 % (0-5); Neutrophil # 6.76 X10^3/uL (2.7-7.7); Neutrophil % 73.5 % (47-70); Platelet Count 189 K/mm3 (150-450); RBC Distribution Width CV 13.9 % (11.6-14.6); RBC Distribution Width SD 44.9 fl (35.1-43.9); Red Blood Count 4.42 M/mm3 (4.2-5.4); White Blood Count 9.2 K/mm3 (4.4-11.0)
[2019-09-09 12:50] LABS: Anion Gap 6 (5-15); BUN 13 mg/dL (7-18); BUN/Creat Ratio 15.8 RATIO (10-20); Calcium,Total 9.4 mg/dL (8.5-10.1); Chloride 106 mmol/L (98-107); Creatinine, Serum 0.82 mg/dL (0.55-1.02); EST Glomerular Filtration Rate 75 mL/min (>60); Est Glom Filt Rate - Afr Amer 91 mL/min (>60); Estimated Creatinine Clearance 61.43 ml/min; Glucose 112 mg/dL (74-106); Potassium 3.9 mmol/L (3.5-5.1); Sodium Level 138 mmol/L (136-145)
[2019-09-09] MEDS: 0.9% Normal Saline 1,000 ML 125 ML IV (12:50)
[2019-09-09 12:52] LABS: Bacteria 0 SEEN /hpf (None Seen); Mucous, Urine 0 SEEN /hpf (<or=2+); Red Blood Cells-Urine 0 SEEN /hpf (0-5); Squamous Epithelial Cells - UA 0 SEEN /hpf (5-10)
[2019-09-09 12:56] LABS: Color, Urine Yellow (Yellow); Glucose, Dipstick Normal (Normal); Ketone-Dipstick Negative (Negative); Leukocyte Esterase-Dipstick 25 /ul (Negative); Nitrite-Dipstick Negative (Negative); Occult Blood-Urine Negative /ul (Negative); Protein-Dipstick Negative (Negative); Urine Bilirubin Dipstick Negative (Negative); Urine Clarity Clear (Clear); Urine Urobilinogen Normal (Normal)
[2019-09-09 13:03] LABS: White Blood Cells 0-5 SEEN /hpf (0-5)
--- NOTE | 2019-09-09 14:21 | ED.VISSUMM ---
- ER Visit Summary Date of Service: 09/09/19 Chief Complaint: [Abdominal pain] History of Present Illness: The patient is a 64 F [presents the emergency department complaint of abdominal pain that started 2 days ago. Patient describes it is mild in the left lower quadrant and suprapubic region that is worse with movement. Patient had one episode of watery stool this morning. She denies any blood in her stool or black tarry stool. Her primary care physician called her in some Cipro and Flagyl suspecting diverticulitis and she started that yesterday. Patient has a history of GERD. Patient's had prior cholecystectomy and hysterectomy. Patient denies any fevers.] Physical Examination: [HEENT-PERRLA, EOMI. Cranial nerves II through XII grossly intact. TMs clear. Mucous membranes moist. No adenopathy. Cardiovascular-regular rate and rhythm without murmur or ectopy Lungs-clear to auscultation, chest wall stable without crepitus or subcu emphysema Abdomen-normoactive bowel sounds, soft. Patient has tenderness over the suprapubic region and left lower quadrant with some guarding. There is no rebound, rigidity, or peritoneal signs. Extremities-intact ?4, normal range of motion, normal pulses, atraumatic] Test Results: [CBC with differential obtained showed a white count of 9.2, hemoglobin 13, hematocrit 39, plates 189. Chemistries were unremarkable. Urinalysis was normal. CT flank showed proximal sigmoid reticulitis. Patient also was noted to have a nodule in the left lower lobe which was present on prior CT study.] Emergency Department Course and Treatment: [He was given a dose of Zofran for her nausea. Patient was advised about her CT findings including the nodule and she is aware of it and will follow-up with her primary care physician regarding it.] Treatment Plan: [Follow-up with primary care physician in 3 to 5 days. Patient to continue with Cipro and Flagyl. She denies anything for pain. She will be given Zofran for nausea for home.] Disposition: [Discharged home in stable condition.] Impression: [Acute sigmoid diverticulitis-uncomplicated] This note was generated with [employer]ation software. It may contain incorrect words, spelling, and punctuation that were not noted in review of the chart prior to signing ED Disposition - Plan for ED Patient: Referrals: Demarcus Burnett MD [Primary Care Provider] -
--- NOTE | 2019-09-09 14:24 | ED.DEP ---
ED Disposition - Plan for ED Patient: Instructions: Diverticulitis Prescriptions: Ondansetron [Zofran Odt] 4 mg PO Q8H PRN PRN #10 tab PRN Reason: Nausea Prescription Printed Referrals: Demarcus Burnett MD [Primary Care Provider] - 3-5 Days
[2019-09-09] MEDS: Ondansetron 4 MG/2 ML Vial IV (14:31)
[2019-09-09 14:34] VITALS: BP 113/66; PULSE 71; RESP 15; O2SAT 98
== END 2019-09-09 14:35 | disposition home or self-care (01) ==
LOC: ED 12:20
PROVIDERS: Emergency Provider Emergency Medicine; Family Provider Family Medicine; PCP Family Medicine
DX: K57.32 Diverticulitis of large intestine without perforation or abscess without bleeding (principal); K21.9 Gastro-esophageal reflux disease without esophagitis; R91.1 Solitary pulmonary nodule
CPT/HCPCS: 74176; 80048; 81001; 85025; 96361; 96374; 99283; J7030; A4216; J2405

== ENCOUNTER → 2019-12-30 11:12 | Outpatient (CLI) | payer OTHER, SELFPAY ==
[2019-12-30 14:48] LABS: Absolute Neutrophil Count 4.8 X10^3/uL (2.0-7.7); Basophil# 0.07 X10^3/uL; Basophil% 0.9 % (0-1); Eosinophil# 0.12 X10^3/uL; Eosinophils% 1.6 % (0-5); Hemoglobin 14.4 g/dL (12.0-15.0); Lymphocyte % 25.6 % (19-41); Mean Corp Hgb Conc 32.7 g/dL (32-36); Mean Corpuscular Hgb 29.8 pg (27.0-32.0); Mean Corpuscular Volume 90.9 fL (81-99); Mean Platelet Vol. 10.2 fl (6.2-12.0); Monocyte# 0.52 X10^3/uL; NRBC Flagged by Analyzer 0 % (0-5); Neutrophil % 64.6 % (47-70); Platelet Count 250 K/mm3 (150-450); RBC Distribution Width CV 13.1 % (11.6-14.6); RBC Distribution Width SD 43.5 fl (35.1-43.9); Red Blood Count 4.84 M/mm3 (4.2-5.4); White Blood Count 7.4 K/mm3 (4.4-11.0)
[2019-12-30 15:02] LABS: Vitamin D,25 Hydroxy 41.7 ng/mL
[2019-12-30 15:03] LABS: Hemoglobin A1c 5.8 % (4.2-6.3)
[2019-12-30 15:04] LABS: AST(SGOT) 26 U/L (15-37); Alanine Aminotransfer ALT/SGPT 36 U/L (13-56); Albumin, Serum 3.7 g/dL (3.2-5.0); Alkaline Phosphatase 144 U/L (45-117); Anion Gap 4 (5-15); BUN 12 mg/dL (7-18); BUN/Creat Ratio 16.6 RATIO (10-20); Calcium,Total 9.1 mg/dL (8.5-10.1); Chloride 100 mmol/L (98-107); Creatinine, Serum 0.72 mg/dL (0.55-1.02); EST Glomerular Filtration Rate 87 mL/min (>60); Est Glom Filt Rate - Afr Amer 105 mL/min (>60); Globulin 3.7 g/dL (2.2-4.2); Glucose 85 mg/dL (74-106); Phosphorus 3.3 mg/dL (2.5-4.9); Potassium 3.8 mmol/L (3.5-5.1); Protein, Total 7.4 g/dL (6.4-8.2); Sodium Level 134 mmol/L (136-145)
== END ==
LOC: MTLAB 11:15
PROVIDERS: PCP Family Medicine; Referring Provider Family Medicine; Visit Provider Family Medicine
DX: K21.9 Gastro-esophageal reflux disease without esophagitis (principal); M85.80 Other specified disorders of bone density and structure, unspecified site; E55.9 Vitamin D deficiency, unspecified; R73.02 Impaired glucose tolerance (oral)
CPT/HCPCS: 36415; 80053; 82306; 83036; 84100; 85025

== ENCOUNTER → 2020-04-09 13:33 | Outpatient (CLI) | payer OTHER, SELFPAY ==
--- NOTE | 2020-04-09 13:35 | RAD_ITS ---
STUDY: X-RAY - RIGHT CALCANEUS REASON FOR EXAM: Female, 64 years old. Right heel pain x 1 month, no injury, on feet all day at work TECHNIQUE: 2 view(s) of the calcaneus were obtained. COMPARISON: None. FINDINGS: Normal visualized calcaneus. RAD/Calcaneus min 2 Views IMPRESSION: Normal x-ray examination of the calcaneus. Electronically Signed: Giles George MD at 14:19 EDT , Service support ,
== END ==
LOC: MTRAD 13:34
PROVIDERS: PCP Family Medicine; Referring Provider Family Medicine; Visit Provider Family Medicine
DX: M79.673 Pain in unspecified foot (principal)
CPT/HCPCS: 73650

== ENCOUNTER → 2020-05-15 08:24 | Outpatient (CLI) | payer OTHER, SELFPAY ==
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
== END ==
LOC: CT 08:25
PROVIDERS: PCP Family Medicine; Referring Provider Family Medicine; Visit Provider Family Medicine
DX: R91.8 Other nonspecific abnormal finding of lung field (principal)
CPT/HCPCS: 71250

== ENCOUNTER → 2020-05-31 09:35 | Outpatient (CLI) | payer OTHER, SELFPAY ==
--- NOTE | 2020-05-31 09:38 | RAD_ITS ---
STUDY: X-RAY - PELVIS AND RIGHT HIP REASON FOR EXAM: Female, 64 years old. RIGHT HIP PAIN AND INSTABILITY, FAVORING RIGHT HEEL CURRENTLY DUE TO PAIN IN HEEL. NKI TECHNIQUE: 3 views of the pelvis and hip. COMPARISON: CT scan abdomen and pelvis 09/09/2019. FINDINGS: There is a non-specific bowel gas pattern. Normal visualized soft tissue structures. Normal bilateral iliac wings, sacroiliac joints and visualized sacrum. Normal bilateral superior and inferior pubic rami. Normal pubic symphysis. Normal bilateral ischial tuberosities. There is heterogeneous sclerosis and lucency of the superior right femoral head, possibly representing previous avascular necrosis. There is no demonstrated collapse of the femoral head. There are osteophytes arising from the base of the femoral head. Normal acetabulum. There is mild articular joint space narrowing of the hip. 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 No demonstrated acute fracture, dislocation, or destructive osseous lesion. Electronically Signed: Tee Phipps MD at 3:01 EDT , Service support ,
== END ==
LOC: MTRAD 09:36
PROVIDERS: PCP Family Medicine; Referring Provider Family Medicine; Visit Provider Family Medicine
DX: M25.551 Pain in right hip (principal)
CPT/HCPCS: 73502

== ENCOUNTER → 2020-06-11 09:29 | Outpatient (CLI) | payer OTHER, SELFPAY ==
--- NOTE | 2020-06-11 10:00 | RAD_ITS ---
PROCEDURE: Fluoroscopic guided Hip Injection DATE: 06/11/2020. INDICATION: Female, 64 years old. Chronic right hip pain. PHYSICIAN: Andre Acuna M.D. MEDICATIONS: 40 mg of KENALOG and 4 cc of 1% LIDOCAINE. 2% lidocaine administered subcutaneously for local anesthesia. ACCESS SITE: Right hip. NEEDLE: 22-gauge spinal needle. FLUOROSCOPY TIME (if supplied): (0:21) minutes/seconds FINDINGS: The risks, benefits, and alternatives to the procedure were explained to the patient. The specific risks of bleeding, infection, and neurovascular injury were detailed and accepted. Witnessed informed consent was obtained. A 22-gauge spinal needle was positioned under radiographic fluoroscopic localization. Approximately 2 cc of ISOVUE-300 instilled for localization purposes. Medication was then injected. The patient tolerated the procedure well without any immediate complications. RAD/Inj/Asp Jac Jt Should/Hip/Knee IMPRESSION: 1. Successful fluoroscopic guided hip injection. Electronically Signed: Andre Acuna, at 10:41 EDT , Service support ,
== END ==
LOC: RAD 09:33
PROVIDERS: PCP Family Medicine; Referring Provider Family Medicine; Visit Provider Family Medicine
DX: M16.11 Unilateral primary osteoarthritis, right hip (principal)
CPT/HCPCS: 20610; 77002; Q9967

== ENCOUNTER → 2020-08-03 15:02 | Outpatient (CLI) | payer OTHER, SELFPAY | PROVIDERS: PCP Family Medicine; Referring Provider Family Medicine; Visit Provider Family Medicine | DX: J20.9 Acute bronchitis, unspecified (principal) | CPT/HCPCS: 87635; U0003 ==

== ENCOUNTER → 2020-09-27 15:18 | Outpatient (CLI) | payer OTHER, SELFPAY ==
--- NOTE | 2020-09-27 15:21 | BI_ITS ---
MAMMOGRAPHY - BILATERAL SCREENING REASON FOR EXAM: Female, 65 years old. Routine annual screening examination. PERTINENT HISTORY: Non-contributory. TECHNIQUE: Digital bilateral breast daniela (3D mammographic acquisition) in the CC and MLO projections. 2-D mediolateral oblique (MLO) and craniocaudad (CC) views of both breasts were obtained. CAD: Full Field Digital Mammography with Computer Added Detection was performed. COMPARISON: Comparison is made with prior study dated 07/15/2019. FINDINGS: Breast Composition: There are scattered areas of fibroglandular density. There are no dominant masses or suspicious calcifications. Stable small benign appearing bilateral axillary lymph nodes. No other significant abnormalities are identified. There has been no significant change since the prior study. BI/SCREEN MAMM (CAD) W/DANIELA BILAT IMPRESSION: Stable bilateral screening mammogram. Yearly follow-up mammogram recommended. (A) ASSESSMENT CATEGORY: BIRADS Category 2: Benign. A letter regarding these results will be sent to the patient by the facility within 30 days. Approximately 10% of breast cancers are not detected by mammography. A normal mammogram should not delay biopsy of a clinically suspicious abnormality. [id number] Electronically Signed: Andre Acuna, at 8:33 EST , Service support ,
== END ==
PROVIDERS: PCP Family Medicine; Referring Provider Family Medicine; Visit Provider Family Medicine
DX: Z12.31 Encounter for screening mammogram for malignant neoplasm of breast (principal)
CPT/HCPCS: 77063; 77067

== ENCOUNTER → 2020-11-03 15:38 | Outpatient (CLI) | payer OTHER, SELFPAY ==
--- NOTE | 2020-11-03 16:04 | RAD_ITS ---
STUDY: X-RAY - CERVICAL SPINE REASON FOR EXAM: Female, 65 years old. NECK PAIN TECHNIQUE: 3 view(s) of the cervical spine were obtained. COMPARISON: None FINDINGS: Normal anterior atlantoaxial articulation. Normal odontoid process. Normal cervical lordosis. Normal vertebral bodies and endplates. Mild loss of height of the discs at C5-C6 and C6-C7, otherwise normal disc space heights. The soft tissue structures are unremarkable. There is no demonstrated fracture of the cervical spine. RAD/Cerv Spine 2 or 3 Views IMPRESSION: No acute abnormality. Mild degenerative disc loss at C5-C6 and C6-C7. Electronically Signed: Chang Adorno MD at 21:57 EST , Service support ,
--- NOTE | 2020-11-03 16:04 | RAD_ITS ---
STUDY: X-RAY - LUMBAR SPINE REASON FOR EXAM: Female, 65 years old. BACK PAIN TECHNIQUE: 2 view(s) of the lumbar spine were obtained. COMPARISON: None FINDINGS: Normal lumbar lordosis. There is no substantial scoliosis. There is a normal alignment of the vertebrae. Normal vertebral bodies and endplates. Multilevel mild narrowing of the disc height most pronounced at L4-L5. No compression fractures. There is atherosclerotic calcification of the abdominal aorta without a demonstrated aneurysm. RAD/Lumbar Spine 2 or 3 Views IMPRESSION: Limited 2 view study of the lumbar spine shows mild multilevel loss of disc height and no gross acute abnormalities. Electronically Signed: Chang Adorno MD at 21:56 EST , Service support ,
== END ==
LOC: RAD 15:42
PROVIDERS: PCP Family Medicine; Referring Provider Anesthesiology Pain Medicine; Visit Provider Anesthesiology Pain Medicine
DX: M54.5 Low back pain (principal); M54.12 Radiculopathy, cervical region; M54.13 Radiculopathy, cervicothoracic region; M54.14 Radiculopathy, thoracic region; M54.2 Cervicalgia
CPT/HCPCS: 72040; 72100

== ENCOUNTER 2020-12-08 16:00 | Outpatient (RCR) | payer OTHER, SELFPAY ==
--- NOTE | 2020-11-30 08:15 | HP.PTEVAL_ITS ---
Patient's Visit Information LUIS MIGUEL SIDDIQUI is a 65 year old F referred to Physical Therapy by Dr. Heather Nova MD with a diagnosis of Cervicothoracic radiculopathy. Date of Evaluation: 11/29/20 Physical Therapist: Rian Milligan DPT - Visit Plan Frequency: 1x/Week Duration: 4 Weeks Plan: The plan is to increase the strength of her paraspinals and shoulder girdle of the L side as well as promoting thoracic extension stretching to increase mobility. May use modalities if needed. - Subjective Pt. is here today for her initial evalutation with diagnosis of back pain. Pt. reports upper back pain favoring the left side for the past 6-7 months. Pain will occur 4 hours on her feet, when she is at work. She wears a posture brace at work and feels like it works sometimes and other times it does not. Twisting increases her pain and has more of the pain on the left side. SHe works 8-9 hours 5 days a week. Pain patch, bengay and heating pad help to decrease her pain. No injections yet. Had previous PT on a fractured L arm about 2 years ago. Pt. likes to walk with dog and no increase in pain. See is seeing pain management on Sunday. Pt. is hopeful to reduce symptoms in order to get back to all work and recreational activities without limitations. - Pain Upper back- left side Pain Intensity (Out of 10): 8 Pain Intensity Range: 0, 10 - Objective Posture: Slightly increased kyphosis of the thoracic spine and forward head displayed. In sitting, patient leans onto right side more. Palpation: PA in supine was hypomobile between T3-T8 with some discomfort at T7-T8. Neuro: Reflexes and sensation WNL bilaterally. ROM: slightly decreased shoulder elevation on left shoulder. MMT: 4-/5 L shoulder, 5/5 R shoulder shoulder f lexion, 5/5 shoulder abd bilaterally, 4-/5 L elbow flexion, 5/5 R elbow flexion, 4/5 L shoulder ER, 4-/5 R shoulder ER - Goals Goal 1:: Increase strength of L shoulder muscles and paraspinals by 1/2 grade. Goal Time Frame: 2-4 Weeks Goal 2:: Pt. able to complete a full work day with 1-2/10 pain in L side of th oracic spine. Goal Time Frame: 2-4 Weeks Goal 3:: Increase thoracic mobility by maintaining a more erect posture throughout work shift and during the day Goal Time Frame: 2-4 Weeks Goal 4:: LTG: Pt. to be educated in prophalxis techniques. - Rehabilitation Potential Physical Therapy Diagnosis: Pt. has signs and symptoms consistent with thoracic pain, possible radiating symptoms. She was tender with palpation of L sided thoracic paraspinals. Pt. Rehabilitation Potential: Excellent - Anticipated Interventions Patient/Client Instruction: Educate patient on: Condition, Plan of Care, Risk Factors, Benefits of Fitness Program For the Purpose of:: To facilitate caregiver knowledge, To improve self management, To prevent re-injury, To improve ability to perform tasks related to life management, To improve tolerance to ADL's Therapeutic Exercise to Include: Strength training, Power training, Endurance training, Flexibilty training, Passive ROM, Active ROM, Dynamic Lumbar Stabilization, Monica Exercises, Scapular Strength/Stabilization For the Purpose of:: To decrease pain, To increase ROM, To improve nutrient d elivery to tissue, To increase oxygenation perfusion, To improve muscle performance and motor function, To improve ability to perform ADL's, To increase tolerance to activity/condition/position, To improve performance and independence with ADL's, To improve ability of physical actions for home/community/work/leisure, To improve health of tissue, To decrease soft tissue restriction, To increase flexibility/ROM Manual Therapy Techniques to Include: Mobilization, Manipulation, Passive ROM, Functional dry needling, Soft tissue mobilization For the Purpose of:: To decrease pain, To decrease swelling/inflammation, To increase ROM, To improve nutrient delivery to tissue, To increase oxygenation perfusion, To improve muscle performance and motor function Ultrasound (thermal/non thermal): Yes For the Purpose of:: To decrease pain, To decrease swelling/inflammation Thank you for the opportunity to evaluate your patient. For Medicare and Medicare HMO plans, please review the plan of care and approve it. It will need to be FAXED BACK to us at [phone] for Medicare purposes. For Medicare only, by signing this I certify the plan of care. Please let me know if there are questions or concerns regarding this plan of care. Physician Signature: Date:
--- NOTE | 2021-02-23 11:47 | HP.PT.NRP ---
LUIS MIGUEL SIDDIQUI was seen in my office for initial evaluation on 11/29/20. The following Plan of Care was established for this patient: Initial Frequency: 1x/Week Initial Duration: 4 Weeks Patient/Client Instruction: Educate patient on: Condition, Plan of Care, Risk Factors, Benefits of Fitness Program For the Purpose of:: To facilitate caregiver knowledge, To improve self management, To prevent re-injury, To improve ability to perform tasks related to life management, To improve tolerance to ADL's Therapeutic Exercise to Include: Strength training, Power training, Endurance training, Flexibilty training, Passive ROM, Active ROM, Dynamic Lumbar Stabilization, Monica Exercises, Scapular Strength/Stabilization For the Purpose of:: To decrease pain, To increase ROM, To improve nutrient delivery to tissue, To increase oxygenation perfusion, To improve muscle performance and motor function, To improve ability to perform ADL's, To increase tolerance to activity/condition/position, To improve performance and independence with ADL's, To improve ability of physical actions for home/community/work/leisure, To improve health of tissue, To decrease soft tissue restriction, To increase flexibility/ROM Manual Therapy Techniques to Include: Mobilization, Manipulation, Passive ROM, Functional dry needling, Soft tissue mobilization For the Purpose of:: To decrease pain, To decrease swelling/inflammation, To increase ROM, To improve nutrient delivery to tissue, To increase oxygenation perfusion, To improve muscle performance and motor function Ultrasound (thermal/non thermal): Yes For the Purpose of:: To decrease pain, To decrease swelling/inflammation This patient was last seen in our office 12/08/20. Pertinent comments regarding their Physical therapy will appear below: Pt. was seen her cervical radiculopathy. Pt. was seen for her initial evaluation and 1 follow, but has not been seen since. She has not been seen in ~87 weeks and will be DC from PT at this point in time. At this point I will be discontinuing this patient from physical therapy. I would be happy to see this patient again in the future if found appropriate by the physician. Thank you! Rian Milligan, ASHLEIGHT
== END 2020-12-08 19:00 | disposition home or self-care (01) ==
LOC: PT 16:00
PROVIDERS: PCP Family Medicine; Referring Provider Anesthesiology Pain Medicine; Visit Provider Anesthesiology Pain Medicine
DX: M54.14 Radiculopathy, thoracic region (principal); M54.13 Radiculopathy, cervicothoracic region
CPT/HCPCS: 97110; 97161

== ENCOUNTER → 2020-12-29 15:14 | Outpatient (CLI) | payer OTHER, SELFPAY ==
[2020-12-29 18:10] LABS: Vitamin D,25 Hydroxy 42.6 ng/mL
[2020-12-29 18:12] LABS: Hemoglobin A1c 5.5 % (3.8-5.6)
[2020-12-29 18:23] LABS: AST(SGOT) 15 U/L (15-37); Alanine Aminotransfer ALT/SGPT 34 U/L (13-56); Albumin, Serum 3.6 g/dL (3.2-5.0); Alkaline Phosphatase 152 U/L (45-117); Anion Gap 6 (5-15); BUN 23 mg/dL (7-18); BUN/Creat Ratio 25.6 RATIO (10-20); Calcium,Total 9.3 mg/dL (8.5-10.1); Chloride 102 mmol/L (98-107); EST Glomerular Filtration Rate 67 mL/min (>60); Est Glom Filt Rate - Afr Amer 81 mL/min (>60); Globulin 3.6 g/dL (2.2-4.2); Glucose 100 mg/dL (74-106); Potassium 3.7 mmol/L (3.5-5.1); Protein, Total 7.2 g/dL (6.4-8.2); Sodium Level 134 mmol/L (136-145)
== END ==
PROVIDERS: PCP Family Medicine; Referring Provider Family Medicine; Visit Provider Family Medicine
DX: R73.02 Impaired glucose tolerance (oral) (principal); E55.9 Vitamin D deficiency, unspecified
CPT/HCPCS: 36415; 80053; 82306; 83036

== ENCOUNTER → 2021-03-10 16:11 | Outpatient (CLI) | payer OTHER, SELFPAY ==
--- NOTE | 2021-03-10 16:13 | RAD_ITS ---
STUDY: X-RAY CHEST REASON FOR EXAM: Female, 65 years old. Acute bronchitis. TECHNIQUE: Frontal and lateral views of the chest. COMPARISON: Chest CT dated 05/14/2020 and chest x-ray dated 06/17/2012. FINDINGS: Mild hyperexpansion with diffuse interstitial pattern and scattered healed granulomatous calcifications, unchanged. Stable left apical pleural thickening. Cardiomegaly unchanged. Normal mediastinum and mary. Normal visualized pulmonary arteries. Normal visualized aortic arch and descending thoracic aorta. Normal visualized thoracic spine. Normal visualized ribs, clavicles, and shoulders. There is no demonstrated abnormality of the visualized soft tissue structures of the upper abdomen. RAD/Chest PA and Lateral IMPRESSION: Stable chest with no acute superimposed findings since the prior study. Electronically Signed: Layo Anna MD at 12:36 EDT , Service support ,
== END ==
LOC: MTRAD 16:12
PROVIDERS: PCP Family Medicine; Referring Provider Family Medicine; Visit Provider Family Medicine
DX: J20.9 Acute bronchitis, unspecified (principal)
CPT/HCPCS: 71046

== ENCOUNTER → 2021-06-30 15:03 | Outpatient (CLI) | payer OTHER, SELFPAY ==
[2021-06-30 17:45] LABS: Absolute Neutrophil Count 5.8 X10^3/uL (2.0-7.7); Basophil# 0.06 X10^3/uL; Basophil% 0.7 % (0-1); Eosinophils% 2.3 % (0-5); Hematocrit 40.8 % (37-47); Hemoglobin 13.4 g/dL (12.0-15.0); Lymphocyte % 24.2 % (19-41); Mean Corp Hgb Conc 32.8 g/dL (32-36); Mean Corpuscular Hgb 30.3 pg (27.0-32.0); Mean Corpuscular Volume 92.3 fL (81-99); Mean Platelet Vol. 9.7 fl (6.2-12.0); Monocyte# 0.52 X10^3/uL; NRBC Flagged by Analyzer 0 % (0-5); Neutrophil # 5.77 X10^3/uL (2.7-7.7); Neutrophil % 66.6 % (47-70); Platelet Count 256 K/mm3 (150-450); RBC Distribution Width CV 13.2 % (11.6-14.6); RBC Distribution Width SD 45.3 fl (35.1-43.9); Red Blood Count 4.42 M/mm3 (4.2-5.4); White Blood Count 8.7 K/mm3 (4.4-11.0)
[2021-06-30 17:56] LABS: ALB/GLOB Ratio 0.9 RATIO (0.9-2.4); AST(SGOT) 22 U/L (15-37); Alanine Aminotransfer ALT/SGPT 31 U/L (13-56); Albumin, Serum 3.5 g/dL (3.2-5.0); Alkaline Phosphatase 117 U/L (45-117); Anion Gap 7 (5-15); BUN 16 mg/dL (7-18); BUN/Creat Ratio 16.9 RATIO (10-20); Calcium,Total 9.1 mg/dL (8.5-10.1); Chloride 103 mmol/L (98-107); Creatinine, Serum 0.94 mg/dL (0.55-1.02); EST Glomerular Filtration Rate 63 mL/min (>60); Est Glom Filt Rate - Afr Amer 77 mL/min (>60); Globulin 3.9 g/dL (2.2-4.2); Glucose 145 mg/dL (74-106); Potassium 3.8 mmol/L (3.5-5.1); Protein, Total 7.4 g/dL (6.4-8.2); Sodium Level 138 mmol/L (136-145)
[2021-06-30 18:21] LABS: Hemoglobin A1c 5.6 % (3.8-5.6)
== END ==
LOC: MFPLAB 15:04
PROVIDERS: PCP Family Medicine; Referring Provider Family Medicine; Visit Provider Family Medicine
DX: K21.9 Gastro-esophageal reflux disease without esophagitis (principal); E55.9 Vitamin D deficiency, unspecified; R73.02 Impaired glucose tolerance (oral)
CPT/HCPCS: 36415; 80053; 82306; 83036; 85025

== ENCOUNTER 2021-11-22 15:57 | Outpatient (CLI) | payer OTHER, SELFPAY ==
--- NOTE | 2021-11-22 16:02 | BD_ITS ---
STUDY: DUAL ENERGY X-RAY ABSORPTIOMETRY / DXA REASON FOR EXAM: Female, 66 years old. 733.90OsteopeniaBONE DENSITY REASON FOR EXAM TECHNIQUE: Bone Mineral Density (BMD) measurements of lumbar spine and bilateral hips were obtained. COMPARISON: Comparison is made with prior study 07/15/2019. FINDINGS: Lumbar Spine (L1-L4): g/cm2 (0.831) / T-score (-2.0) / Z-score (-0.3) Findings are suggestive of osteopenia with a moderate fracture risk. Left Femur Total: g/cm2 (0.718) / T-score (-1.8) / Z-score (0.6) Left Femoral Neck: g/cm2 (0.609) / T-score (-2.2) / Z-score (-0.7) Right Femur Total: g/cm2 (0.677) / T-score (-2.2) / Z-score (-1.0) Right Femoral Neck: g/cm2 (0.663) / T-score (-1.7) / Z-score (-0.2) The T-Scores on the most recent prior examination were: Lumbar Spine (L1-L4): There has been worsening of bone density since the previous examination. Left Femur Total: which represents a worsening of 2.2%. Right Femur Total: which represents a worsening of 4.4%. BD/Dexa Bone Density Study IMPRESSION: The patient is considered osteopenic as outlined below according to World Joseph Organization (WHO) criteria with a high fracture risk. There has been worsening of bone density since the previous examination. Reference Information: The T-score is the number of standard deviations above or below the standard which is normal for young adults at their peak bone mineral density. The World Health Organization (WHO) interprets the T-scores as follows: Above -1 Normal bone density Between -1 and -2.5 Osteopenia Equal to / or below -2.5 Osteoporosis As a practical clinical guideline, osteopenia may be graded as follows: Mild -1 through -1.5 Moderate -1.6 through -2.0 Severe -2.1 through -2.4 The Z-score is the number of standard deviations above or below age-matched controls. A Z-score of less than -1.5 would be considered abnormal. References: 1. NIH Osteoporosis and Related Bone Diseases www osteo.org 2. International Society for Clinical Densitometry www iscd.org 3. National Osteoporosis Foundation www nof.org Electronically Signed: Andre Acuna MD at 15:21 EST ,
== END 2021-11-22 23:59 | disposition home or self-care (01) ==
LOC: OPBD 15:58
PROVIDERS: PCP Family Medicine; Visit Provider Family Medicine
DX: M85.80 Other specified disorders of bone density and structure, unspecified site (principal)
CPT/HCPCS: 77080

== ENCOUNTER 2021-11-25 17:43 | Outpatient (CLI) | payer OTHER, SELFPAY ==
--- NOTE | 2021-11-25 17:50 | CT_ITS ---
STUDY: CT CHEST WITHOUT CONTRAST- LOW DOSE SCREENING PROTOCOL REASON FOR EXAM: Female, 66 years old. Former smoker. Quit smoking less than 5 years ago. 50 pack per year history. No current symptoms of lung cancer or pulmonary infection. Shared decision-making with referring PCP documented in patient''s record. RADIATION DOSAGE (If Supplied By Facility): CTDIvol = ( 3.02 ) mGy, DLP = ( 95.15 ) mGycm TECHNIQUE: Low dose screening CT examination performed from the base of the neck to the upper abdomen. Sagittal and coronal reformatted images performed. Sagittal and coronal MIP images provided. The measurements provided are average, rounded measurements per ACR guidelines. COMPARISON: 05/15/2020 FINDINGS: Moderate bilateral apical scarring. Mild emphysema. Mild diffuse cylindrical bronchiectasis. No change in left lower lobe linear scar. No noncalcified nodule or mass. There is no demonstrated pleural abnormality. Normal heart and pericardium. There are calcifications of the coronary arteries. Normal mediastinum. Normal hilar regions. Normal unenhanced pulmonary arteries. Normal aorta arch and descending thoracic aorta. Normal osseous structures. Status post cholecystectomy. CT/Low Dose CT Lung Screening IMPRESSION: 1. No significant indeterminate incidental findings requiring additional imaging. 2. Incidental findings include emphysema scarring and bronchiectasis. ASSESSMENT CATEGORY: LungRADS 1 - Negative. Continue annual screening with LDCT in 12 months, per established ACR guidelines. Electronically Signed: Jude Fischer MD at 15:53 EST ,
== END 2021-11-25 23:59 | disposition home or self-care (01) ==
PROVIDERS: PCP Family Medicine; Visit Provider Family Medicine
DX: Z87.891 Personal history of nicotine dependence (principal)
CPT/HCPCS: 71271

== ENCOUNTER → 2022-06-06 | Outpatient (CLI) | payer BC, SELFPAY ==
[2022-06-06 16:50] LABS: Mucous, Urine 0 SEEN /hpf (<or=2+)
[2022-06-06 17:46] LABS: Absolute Lymphocyte Count 1.92 X10^3/uL (0.83-4.51); Basophil# 0.06 X10^3/uL; Basophil% 0.9 % (0-1); Hematocrit 40.8 % (37-47); Hemoglobin 13.3 g/dL (12.0-15.0); Lymphocyte # 1.92 X10^3/ul (0.83-4.51); Lymphocyte % 28.8 % (19-41); Mean Corp Hgb Conc 32.6 g/dL (32-36); Mean Corpuscular Hgb 29.9 pg (27.0-32.0); Mean Corpuscular Volume 91.7 fL (81-99); Mean Platelet Vol. 9.7 fl (6.2-12.0); Monocyte# 0.46 X10^3/uL; Monocyte% 6.9 % (0-10); NRBC Flagged by Analyzer 0 % (0-5); Neutrophil # 4.01 X10^3/uL (2.7-7.7); Neutrophil % 60.1 % (47-70); Platelet Count 243 K/mm3 (150-450); RBC Distribution Width SD 43.8 fl (35.1-43.9); Red Blood Count 4.45 M/mm3 (4.2-5.4); White Blood Count 6.7 K/mm3 (4.4-11.0)
[2022-06-06 17:50] LABS: Color, Urine Yellow (Yellow); Glucose, Dipstick Normal (Normal); Ketone-Dipstick 5 mg/dl (Negative); Leukocyte Esterase-Dipstick 100 /ul (Negative); Nitrite-Dipstick Negative (Negative); Occult Blood-Urine Negative /ul (Negative); Protein-Dipstick Negative (Negative); Urine Bilirubin Dipstick Negative (Negative); Urine Clarity Clear (Clear); Urine Urobilinogen Normal (Normal)
[2022-06-06 18:33] LABS: Bacteria RARE /hpf (None Seen); Red Blood Cells-Urine 0-5 SEEN /hpf (0-5); Squamous Epithelial Cells - UA 0-5 SEEN /hpf (5-10); White Blood Cells 5-10 SEEN /hpf (0-5)
[2022-06-06 18:42] LABS: AST(SGOT) 24 U/L (15-37); Alanine Aminotransfer ALT/SGPT 31 U/L (13-56); Albumin, Serum 3.7 g/dL (3.2-5.0); Alkaline Phosphatase 127 U/L (45-117); Anion Gap 8 (5-15); BUN 18 mg/dL (7-18); BUN/Creat Ratio 22.2 RATIO (10-20); Calcium,Total 9.6 mg/dL (8.5-10.1); Chloride 101 mmol/L (98-107); Creatinine, Serum 0.81 mg/dL (0.55-1.02); EST Glomerular Filtration Rate 76 mL/min (>60); Est Glom Filt Rate - Afr Amer 91 mL/min (>60); Globulin 3.8 g/dL (2.2-4.2); Glucose 93 mg/dL (74-106); Magnesium 2.1 mg/dL (1.6-2.6); Protein, Total 7.5 g/dL (6.4-8.2); Sodium Level 137 mmol/L (136-145); Thyroid Stim Hormone (TSH) 2.39 uIU/mL (0.358-3.74)
== END | disposition home or self-care (01) ==
LOC: MFPLAB 16:44
PROVIDERS: PCP Family Medicine; Referring Provider Family Medicine; Visit Provider Family Medicine
DX: R03.0 Elevated blood-pressure reading, without diagnosis of hypertension (principal)
CPT/HCPCS: 36415; 80053; 81001; 83735; 84443; 85025

== ENCOUNTER → 2023-09-11 | Outpatient (CLI) | payer BC, SELFPAY ==
--- NOTE | 2023-09-11 16:04 | CT_ITS ---
STUDY: LOW DOSE CT LUNG CANCER SCREENING REASON FOR EXAM: Female, 68 years old. One pack per day smoker x50 years, quit 5 years ago RADIATION DOSAGE (If Supplied By Facility): CTDIvol = ( 2.39 ) mGy, DLP = ( 75.94 ) mGycm TECHNIQUE: No contrast was administered. Low dose technique was utilized (average mAS-38 and kVp 120). 1.25 mm axial source images with a slice interval of 1.25-mm were reconstructed in lung windows. 2.5 mm axial source images with a slice interval of 2.5-mm were reconstructed in lung windows. 5.0 mm axial source images with a slice interval of 5.0-mm were reconstructed in soft tissue windows. COMPARISON: 11/25/2021 FINDINGS: Stable apical scarring with chronic interstitial changes again noted in both lung cesar and nonspecific pleural thickening. No organized infiltrate, effusion, or suspicious noncalcified mass or nodule. No interval change since the previous study. Limited soft tissue windows show a normal-appearing thyroid gland. No suspicious adenopathy. No coronary artery calcifications. Thoracic aorta tapers normally. Limited cuts through the upper abdomen show no suspicious solid organ abnormality, bony structures show degenerative change CT/Low Dose CT Lung Screening IMPRESSION: Lung-RADS category 2 - Continue annual screening with LDCT in 12 months. IMPORTANT NOTES FOR USE: ACR Lung-RADS Version 1.1 Assessment Categories Release Date: 2018 Category: Coded 0-4 bases on nodule(s) with highest degree of suspicion. Negative screen is defined as categories 1 and 2; a positive screen is defined as categories 3 and 4. Category 3 and 4A nodules that are unchanged on interval CT should be coded as category 2, and individuals returned to screening in 12 months. Category 4X: Category 3 or 4 nodules with additional imaging findings that increase the suspicion of lung cancer, such as spiculation, GGN that doubles in size in 1 year, enlarged lymph notes, etc. Category Modifiers: S (significant finding unrelated to lung cancer) Electronically Signed: Giles George MD at 10:28 EST ,
--- NOTE | 2023-09-11 16:15 | BI_ITS ---
MAMMOGRAPHY - BILATERAL SCREENING 3-D TOMOSYNTHESIS REASON FOR EXAM: Female, 68 years old. Routine annual screening mammogram PERTINENT HISTORY: No significant family history. TECHNIQUE: 2-D mammograms and 3-D Tomosynthesis of the breast (s) were performed. CAD was performed. COMPARISON: September 27, 2020, September 14, 2019 FINDINGS: Stable scattered fibroglandular densities. Normal lymph nodes and scattered benign calcifications, unchanged. No dominant masses, suspicious microcalcifications, asymmetry, skin thickening or nipple retraction. BI/SCRN MAMM (CAD)W/DANIELA BILAT IMPRESSION: No mammographic signs of malignancy. Yearly follow-up bilateral screening mammogram recommended. ASSESSMENT CATEGORY: BIRADS Category 2: Benign. A letter regarding these results will be sent to the patient by the facility within 30 days. FOLLOW UP RECOMMENDATION: Yearly follow up mammogram recommended. (A) Approximately 10% of breast cancers are not detected by mammography. A normal mammogram should not delay biopsy of a clinically suspicious abnormality. Electronically Signed: Layo Anna MD at 11:18 EST ,
== END | disposition home or self-care (01) ==
LOC: CT 15:59
PROVIDERS: PCP Family Medicine; Referring Provider Nurse Practitioner Family; Visit Provider Nurse Practitioner Family
DX: Z12.31 Encounter for screening mammogram for malignant neoplasm of breast (principal); Z12.2 Encounter for screening for malignant neoplasm of respiratory organs; Z87.891 Personal history of nicotine dependence
CPT/HCPCS: 71271; 77063; 77067

== ENCOUNTER → 2023-09-20 | Outpatient (CLI) | payer BC, SELFPAY ==
[2023-09-20 18:41] LABS: Anion Gap 8 (5-15); BUN 15 mg/dL (7-18); BUN/Creat Ratio 18.5 RATIO (10-20); Calcium,Total 9.1 mg/dL (8.5-10.1); Chloride 100 mmol/L (98-107); Cholesterol 232 mg/dL (200); Creatinine, Serum 0.81 mg/dL (0.55-1.02); EST Glomerular Filtration Rate 75 mL/min (>60); Est Glom Filt Rate - Afr Amer 91 mL/min (>60); Glucose 100 mg/dL (74-106); High Density Lipoprotein 86 mg/dL; Potassium 4.1 mmol/L (3.5-5.1); Sodium Level 135 mmol/L (136-145); Triglycerides 107 mg/dL; Very Low Density Lipoprotein 21 mg/dL (5-40)
== END | disposition home or self-care (01) ==
LOC: MFPLAB 15:56
PROVIDERS: Nurse Practitioner Family; PCP Family Medicine; Visit Provider Family Medicine
DX: Z13.1 Encounter for screening for diabetes mellitus (principal); Z13.220 Encounter for screening for lipoid disorders
CPT/HCPCS: 36415; 80048; 80061

== ENCOUNTER → 2024-03-04 | Outpatient (CLI) | payer BC, SELFPAY ==
[2024-03-04 17:53] LABS: Absolute Lymphocyte Count 2.03 X10^3/uL (0.83-4.51); Absolute Neutrophil Count 3.7 X10^3/uL (2.0-7.7); Basophil# 0.05 X10^3/uL; Basophil% 0.8 % (0-1); Eosinophil# 0.11 X10^3/uL; Eosinophils% 1.7 % (0-5); Hematocrit 41.4 % (37-47); Hemoglobin 13.6 g/dL (12.0-15.0); Lymphocyte # 2.03 X10^3/ul (0.83-4.51); Lymphocyte % 31.5 % (19-41); Mean Corp Hgb Conc 32.9 g/dL (32-36); Mean Corpuscular Hgb 30.4 pg (27.0-32.0); Mean Corpuscular Volume 92.4 fL (81-99); Mean Platelet Vol. 9.8 fl (6.2-12.0); Monocyte# 0.52 X10^3/uL; Monocyte% 8.1 % (0-10); NRBC Flagged by Analyzer 0 % (0-5); Neutrophil # 3.71 X10^3/uL (2.7-7.7); Neutrophil % 57.6 % (47-70); Platelet Count 250 K/mm3 (150-450); RBC Distribution Width CV 13.2 % (11.6-14.6); RBC Distribution Width SD 44.7 fl (35.1-43.9); Red Blood Count 4.48 M/mm3 (4.2-5.4); White Blood Count 6.4 K/mm3 (4.4-11.0)
[2024-03-04 18:04] LABS: ALB/GLOB Ratio 1.1 RATIO (0.9-2.4); AST(SGOT) 39 U/L (15-37); Alanine Aminotransfer ALT/SGPT 47 U/L (13-56); Albumin, Serum 3.9 g/dL (3.2-5.0); Alkaline Phosphatase 117 U/L (45-117); Anion Gap 7 (5-15); BUN 17 mg/dL (7-18); BUN/Creat Ratio 16.3 RATIO (10-20); Calcium,Total 10.2 mg/dL (8.5-10.1); Chloride 101 mmol/L (98-107); Creatinine, Serum 1.04 mg/dL (0.55-1.02); EST Glomerular Filtration Rate 56 mL/min (>60); Est Glom Filt Rate - Afr Amer 68 mL/min (>60); Globulin 3.6 g/dL (2.2-4.2); Glucose 111 mg/dL (74-106); Potassium 4.3 mmol/L (3.5-5.1); Protein, Total 7.5 g/dL (6.4-8.2); Sodium Level 136 mmol/L (136-145)
[2024-03-04 18:11] LABS: Hemoglobin A1c 5.5 % (3.8-5.6)
[2024-03-04 21:17] LABS: Vitamin D,25 Hydroxy 52.5 ng/mL
== END | disposition home or self-care (01) ==
LOC: MFPLAB 15:57
PROVIDERS: PCP Family Medicine; Visit Provider Family Medicine
DX: M85.80 Other specified disorders of bone density and structure, unspecified site (principal); R73.02 Impaired glucose tolerance (oral)
CPT/HCPCS: 36415; 80053; 82306; 83036; 85025

== ENCOUNTER → 2024-03-07 | Outpatient (CLI) | payer BC, SELFPAY ==
--- NOTE | 2024-03-07 | LES_PTH ---
PATIENT: LUIS MIGUEL SIDDIQUI LOC: [facility] U#:[id number] AGE/SX: 68/F ROOM: RE03/07/[address]: Dr. Demarcus Burnett MD : [id number] BED: DIS: 03/07/2024 SPEC #: [id number] RECD: 03/10/24 09:04 STATUS: FIDELINA KASEY #: [id number] DANDRE: 03/07/24 00:[address]: Demarcus Burnett DEPT: SURGICAL PATHOLOGY RECD BY: Abundio Stanton Tissues: Skin, NOS Procedures: Surgery Specimen Level IV HEADER OPERATION: Surgical pathology procedure PRE-OP DIAGNOSIS: Neoplasm of uncertain behavior of skin TISSUE SUBMITTED: Skin biopsy MICROSCOPIC DIAGNOSIS Skin lesion, excisional biopsy: Fibroepithelial polyps x3 (skin tags). See comment. ROGER/ 03/11/2024 COMMENT The lesions measure 0.3, 0.4 and 1.7cm in greatest dimension. MICROSCOPIC DESCRIPTION Slides are reviewed. GROSS DESCRIPTION Received is one container labeled with the patient's name and not further designated. The specimen consists of a polypoid piece of lancaster-white skin measuring 1.7 x 1.0 x 0.6cm. This piece is inked, serially sectioned. Also present in the container are two smaller pieces of lancaster-white skin measuring 0.3 and 0.4cm in greatest dimension. The entire specimen is submitted in one cassette. ROGER/ 03/10/2024 TC:5 CPT:44968
== END | disposition home or self-care (01) ==
LOC: LABSPEC 17:42
PROVIDERS: PCP Family Medicine; Visit Provider Family Medicine
DX: D48.5 Neoplasm of uncertain behavior of skin (principal)
CPT/HCPCS: 88305

== ENCOUNTER 2024-07-07 20:34 | Emergency (ER) | payer BC, SELFPAY ==
[2024-07-07 20:37] VITALS: BP 158/84; PULSE 84; RESP 16; TEMP 36.4; O2SAT 97
[2024-07-07 20:42] VITALS: BMI 27.6
--- NOTE | 2024-07-07 21:00 | RAD_ITS ---
INDICATION: FALL EXAMINATION/TECHNIQUE: X-RAY - RIGHT XR Wrist Min 3 Views 3 VIEWS COMPARISON: FINDINGS: SOFT TISSUES: There is soft tissue swelling. No radiopaque foreign body. BONES/JOINTS: There is a comminuted distal radial fracture with involvement of the distal articular surface.. No sclerotic or destructive changes observed. RAD/Wrist min 3 Views IMPRESSION: Comminuted distal radial fracture. Electronically Signed: Aden Patel DO at 22:10 EDT ,
[2024-07-07 22:34] VITALS: BP 128/71; PULSE 90; RESP 16; O2SAT 92
[2024-07-07] MEDS: Morphine 4 MG/ML Syringe IV (22:58)
[2024-07-07] MEDS: Ondansetron 4 MG/2 ML Vial IV (22:58)
[2024-07-07] MEDS: 0.9% Normal Saline (500mL Bag) 500 ML 999 ML IV (23:14)
[2024-07-07 23:36] VITALS: BP 140/75; PULSE 85; RESP 16; O2SAT 97
[2024-07-08] VITALS (11 sets, daily range): BP systolic 97–125; BP diastolic 60–85; PULSE 72–87; RESP 11–21; TEMP 36.8; O2SAT 79–98
[2024-07-08] MEDS: HYDROmorphone 1 MG/ML Syringe IV ×2 (00:07→03:29)
[2024-07-08] MEDS: Ondansetron 4 MG/2 ML Vial IV (04:59)
[2024-07-08] MEDS: Propofol 200 MG/20 ML Vial IV BOLUS (05:02)
[2024-07-08] MEDS: Midazolam 5 MG/ML Syringe IV (05:03)
--- NOTE | 2024-07-08 05:11 | RAD_ITS ---
INDICATION: s/p reduction and pain EXAMINATION/TECHNIQUE: X-RAY - RIGHT XR Wrist Min 3 Views 4 VIEWS COMPARISON: Prior study dated: 07/07/2024 FINDINGS: BONES: Exam through splint. Comminuted fracture distal radius with intra-articular extension as on the prior. Mild impaction and minimal dorsal displacement of the distal fragment with partial improved alignment compared to earlier. JOINTS: No dislocation. SOFT TISSUES: Soft tissue swelling noted.. RAD/Wrist min 3 Views IMPRESSION: Distal radius fracture in cast with partially improved alignment. Electronically Signed: Tita Leach MD at 6:43 EDT ,
--- NOTE | 2024-07-08 05:20 | RAD_ITS ---
INDICATION: PAIN EXAMINATION/TECHNIQUE: X-RAY - LEFT XR Wrist Min 3 Views 8 VIEWS COMPARISON: Prior study dated: Left wrist x-rays 07/23/2017 FINDINGS: BONES: Surgical hardware metallic plate and screws in the distal radius with interval healing of the distal radius fracture compared to the prior. No fracture demonstrated. JOINTS: No dislocation. SOFT TISSUES: Unremarkable. Acute intravenous catheter dorsally. RAD/Wrist min 3 Views IMPRESSION: No evidence of acute fracture. ORIF distal radius fracture. Electronically Signed: Tita Leach MD at 6:41 EDT ,
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
== END 2024-07-08 07:33 | disposition home or self-care (01) ==
PROVIDERS: Emergency Provider Emergency Medicine; PCP Family Medicine; Visit Provider Emergency Medicine
DX: S52.501A Unspecified fracture of the lower end of right radius, initial encounter for closed fracture (principal); S00.31XA Abrasion of nose, initial encounter; S00.511A Abrasion of lip, initial encounter; S00.531A Contusion of lip, initial encounter; S60.512A Abrasion of left hand, initial encounter; S60.812A Abrasion of left wrist, initial encounter; Y04.0XXA Assault by unarmed brawl or fight, initial encounter; K21.9 Gastro-esophageal reflux disease without esophagitis; M81.8 Other osteoporosis without current pathological fracture; M19.90 Unspecified osteoarthritis, unspecified site; Z96.89 Presence of other specified functional implants; Z87.81 Personal history of (healed) traumatic fracture; Z87.891 Personal history of nicotine dependence
CPT/HCPCS: 25605; 73110; 96361; 96374; 96375; 96376; 99284; J7040; A4216; J2405

== ENCOUNTER 2024-10-16 16:00 | Outpatient (RCR) | payer MEDICARE, BC, SELFPAY ==
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
--- NOTE | 2024-10-16 16:28 | HP.OTDCNRP_ITS ---
Patient Information Patient Information: LUIS MIGUEL SIDDIQUI was seen in my office for initial evaluation on 08/28/24. The following Plan of Care was established for this patient: POC Established Initial Frequency: 2x /Week Initial Duration: 3 Weeks Plan: AROM tendon glide progress hand strengthening then wrist 7 weeks: AAROM , hand strengthening with putty if not swollen 8 weeks: gentle passive motion 9 weeks: gradual wrist strengthening strengthening as tolerates edema management pt would benefit from cont. skilled OT services to continue to get tight functional fist and strengthen strength. Anticipated Interventions Anticipated Interventions: A/AAROM/PROM, Strengthening, Edema Control, Triggerpoint Release, Modalities, Orthoses, Joint Protection/Energy C onservation, Education re Diagnosis and Home Program Last Seen Last Seen: This patient was last seen in our office 10/16/24. Pertinent comments regarding their Occupational therapy will appear below: This 69 year old female seen by OT for radius fx. pt progress in POC progress made in strength ROM as well as pain and decrease inflammation. Pt discharge this date plans to continue exercises on own at home. pt is back to work and doing well. At this point I will be discontinuing this patient from occupational therapy. I would be happy to see this patient again in the future if found appropriate by the physician. Thank you! Soniya Michaels
--- NOTE | 2024-10-16 16:28 | HP.OTDCSUM ---
Discharge Summary D/C Summary: It has been my pleasure to treat LUIS MIGUEL SIDDIQUI under orders from Mj Emmanuel PA-C, for the diagnosis of S52.591D fx of lower end of R radius for a total of 18 visit(s). Please see the following information for a summary of their discharge status. Overall Improvement % Improvement: 100 Objective Objective/Function: wrist 50/55 R lateral pinch 3# R tripod pinch 1# L lateral pinch 8# L tripod pinch 8# R coating mixer tender 15# L coating mixer tender 40# pt is 1 cm RF to palm Goals Patient Goals: Regain Strength, Decrease Pain, Return to Work, Decrease Swelling/Stiffness, Improve Fine Motor Skills, Use Hand/Wrist/Arm Normally Again, Increase ROM, Be More Independent in ADLS, Resume Former Household Responsibilities (Cooking,Cleaning,Yard, etc.) and Resume Hobbies Goal:: pt will improve R hand strength equal to or greater than non affected side R 15# L 40# NOT MET Goal:: pt will improve wrist as well as digit ROM RUE equal to non affected side in order to perform day to day tasks wrist met digit almost at composite fist not met Goal:: pt will report 1/10 pain or less with completion of day to day tasks goal met Goal:: pt will decrease swelling in RUE equal to non affected side for improved ROM and healing goal met Goal:: pt will verbalize/ demonstrate 100% accuracy in proper joint protection and positioning goal met Goal:: pt will report I in LE management pants in order to return to PLOF goal met Goal:: pt will improve quick dash score by 10 points or more in order to improve functional use of RUE goal met Plan Plan: AROM tendon glide progress hand strengthening then wrist 7 weeks: AAROM , hand strengthening with putty if not swollen 8 weeks: gentle passive motion 9 weeks: gradual wrist strengthening strengthening as tolerates edema management pt would benefit from cont. skilled OT services to continue to get tight functional fist and strengthen strength. D/C Information Discharge Comments: This 69 year old female seen by OT for radius fx. pt progress in POC progress made in strength ROM as well as pain and decrease inflammation. Pt discharge this date plans to continue exercises on own at home. pt is back to work and doing well. d/c sentence: If there are questions or concerns regarding this patient's occupational therapy, please fell free to call me at [phone]. Thank you for the referral of this patient. Sincerely, Soniya Michaels
== END 2024-10-16 19:00 | disposition home or self-care (01) ==
LOC: OT 16:00
PROVIDERS: PCP Family Medicine; Referring Provider Physician Assistant Surgical; Visit Provider Physician Assistant Surgical
DX: S52.591D Other fractures of lower end of right radius, subsequent encounter for closed fracture with routine healing (principal)
CPT/HCPCS: 97110; 97140; 97165; 97530

== ENCOUNTER 2025-01-01 16:45 | Outpatient (CLI) | payer MEDICARE, BC, SELFPAY ==
[2025-01-01 16:50] LABS: Bacteria 0 SEEN /hpf (None Seen); Mucous, Urine 0 SEEN /hpf (<or=2+); Red Blood Cells-Urine 0 SEEN /hpf (0-5)
[2025-01-01 17:59] LABS: Absolute Lymphocyte Count 2.23 X10^3/uL (0.83-4.51); Absolute Neutrophil Count 4.2 X10^3/uL (2.0-7.7); Basophil# 0.07 X10^3/uL; Eosinophil# 0.16 X10^3/uL; Eosinophils% 2.2 % (0-5); Hematocrit 39.9 % (37-47); Hemoglobin 13.7 g/dL (12.0-15.0); Lymphocyte # 2.23 X10^3/ul (0.83-4.51); Lymphocyte % 30.8 % (19-41); Mean Corp Hgb Conc 34.3 g/dL (32-36); Mean Corpuscular Hgb 30.3 pg (27.0-32.0); Mean Corpuscular Volume 88.3 fL (81-99); Mean Platelet Vol. 9.7 fl (6.2-12.0); Monocyte# 0.54 X10^3/uL; Monocyte% 7.5 % (0-10); NRBC Flagged by Analyzer 0 % (0-5); Neutrophil # 4.23 X10^3/uL (2.7-7.7); Neutrophil % 58.4 % (47-70); Platelet Count 249 K/mm3 (150-450); RBC Distribution Width SD 42.2 fl (35.1-43.9); Red Blood Count 4.52 M/mm3 (4.2-5.4); White Blood Count 7.2 K/mm3 (4.4-11.0)
[2025-01-01 18:26] LABS: Hemoglobin A1c 5.8 % (<=5.6)
[2025-01-01 18:49] LABS: ALB/GLOB Ratio 1.4 RATIO (0.9-2.4); AST(SGOT) 29 U/L (<=31); Alanine Aminotransfer ALT/SGPT 24 U/L (<=34); Albumin, Serum 4.3 g/dL (3.4-4.8); Alkaline Phosphatase 139 U/L (35-104); Anion Gap 14 (5-15); BUN 19 mg/dL (4-19); BUN/Creat Ratio 24.4 RATIO (10-20); Calcium,Total 9.8 mg/dL (7.6-11.0); Carbon Dioxide 22.8 mmol/L (21.0-32.0); Chloride 100 mmol/L (98-108); Cholesterol 262 mg/dL (<=200); Creatinine, Serum 0.78 mg/dL (0.70-1.20); EST Glomerular Filtration Rate 84 (>60); Glucose 137 mg/dL (70-99); High Density Lipoprotein 79 mg/dL; Low Density Lipoprotein Calc. 128 mg/dL; Potassium 3.8 mmol/L (3.3-5.1); Protein, Total 7.3 g/dL (5.9-8.4); Sodium Level 137 mmol/L (133-145); Total Bilirubin 0.26 mg/dL (0.00-1.30); Triglycerides 276 mg/dL; Very Low Density Lipoprotein 55 mg/dL (5-40); Vitamin D,25 Hydroxy 39.2 ng/mL (30-100); cholesterol:hdl ratio screen 3.34
[2025-01-02 18:21] LABS: Color, Urine Yellow (Yellow); Glucose, Dipstick Normal (Normal); Ketone-Dipstick Negative (Negative); Leukocyte Esterase-Dipstick 100 /ul (Negative); Nitrite-Dipstick Negative (Negative); Occult Blood-Urine Negative /ul (Negative); Protein-Dipstick Negative (Negative); Specific Gravity, Urine 1.025 (1.002-1.030); Urine Bilirubin Dipstick Negative (Negative); Urine Clarity Turbid (Clear); Urine Urobilinogen Normal (Normal)
[2025-01-02 18:47] LABS: White Blood Cells 0-5 SEEN /hpf (0-5)
[2025-01-02 18:48] LABS: Amorphous Sediment 4+ URATE; Calcium Oxalate Crystals Ur 2+ /hpf (<or=2+); Squamous Epithelial Cells - UA 0-5 SEEN /hpf (5-10)
== END 2025-01-01 23:59 | disposition home or self-care (01) ==
LOC: MFPLAB 16:46
PROVIDERS: PCP Family Medicine; Referring Provider Family Medicine; Visit Provider Family Medicine
DX: R73.02 Impaired glucose tolerance (oral) (principal); I10 Essential (primary) hypertension; E55.9 Vitamin D deficiency, unspecified
CPT/HCPCS: 36415; 80053; 80061; 81001; 82306; 83036; 85025

== ENCOUNTER → 2025-03-10 | Outpatient (CLI) | payer MEDICARE, SELFPAY ==
--- NOTE | 2025-03-10 17:53 | CT_ITS ---
PROCEDURE: LOW DOSE CT LUNG SCREENING 03/10/2025 REASON FOR EXAM: SCREENING FOR LUNG CANCER TECHNIQUE: LOW DOSE CT LUNG SCREENING Coronal and Sagittal reconstruction series were provided. One or more dose reduction techniques were used (e.g., Automated exposure control, adjustment of the mA and/or kV according to patient size, use of iterative reconstruction technique). REFERENCE LINK: [employer] Lung-RADS RADIATION DOSE SUMMARY: CTDlvol: 3.02 mGy DLP: 101.94 mGycm COMPARISON: 09/11/2023. FINDINGS: PULMONARY NODULES: (Only nodules >3mm are reported) Nodules described below are on series 2 unless otherwise specified. Unchanged bilateral multifocal chronic interstitial pulmonary thickening. Unchanged bilateral basilar multifocal nodular atelectasis in the lung bases. Unchanged bilateral peribronchial interstitial thickening, probably bronchitis. Unchanged mild coronary artery calcifications. Unchanged emphysema. Unchanged small sliding hiatal hernia. Unchanged hepatomegaly with hepatic steatosis. Prior cholecystectomy, unchanged. Normal unenhanced main pulmonary artery and right and left pulmonary arteries. Normal bilateral peripheral pulmonary arteries. Mild atheromatous plaques of the thoracic aorta and visualized great vessels. There is no demonstrated aortic aneurysm. Normal heart and pericardium. Normal mediastinum. Normal hilar regions. Normal visualized trachea and thickened bronchi. Normal pleura. Normal visualized upper abdomen. CT/Low Dose CT Lung Screening IMPRESSION: 1. Unchanged bilateral multifocal chronic interstitial pulmonary thickening. 2. Unchanged bilateral basilar multifocal nodular atelectasis in the lung bases . 3. Unchanged bilateral peribronchial interstitial thickening, probably bronchit is. 4. Unchanged mild coronary artery calcifications. 5. Unchanged emphysema. 6. Unchanged small sliding hiatal hernia. 7. Unchanged hepatomegaly with hepatic steatosis. 8. Prior cholecystectomy, unchanged. 9. Coronary artery calcification (CAC) is is present 10. Lung-RADS Category: Lung-RADS category 2 - Continue annual screening with L DCT in 12 months. Reading Location: [facility]
== END | disposition home or self-care (01) ==
LOC: CT 17:51
PROVIDERS: PCP Family Medicine
DX: Z12.2 Encounter for screening for malignant neoplasm of respiratory organs (principal); Z87.891 Personal history of nicotine dependence
CPT/HCPCS: 71271

== ENCOUNTER → 2025-03-11 | Outpatient (CLI) | payer MEDICARE, SELFPAY ==
--- NOTE | 2025-03-11 14:35 | BI_ITS ---
EXAM: SCRN MAMM (CAD)W/DANIELA BILAT DATE: 03/11/2025 CLINICAL HISTORY: F, Age 69 y/o , BREAST CANCER TECHNIQUE: SCRN MAMM (CAD)W/DANIELA BILAT COMPARISON: Prior exam(s) dated 09/11/2023, 09/27/2020. FINDINGS: TISSUE DENSITY: There are scattered areas of fibroglandular density. Bilateral Breast Mammographic Findings: No significant masses, calcifications or other abnormalities are identified. BI/SCRN MAMM (CAD)W/DANIELA BILAT IMPRESSION: There is no mammographic evidence of malignancy. OVERALL FINAL ASSESSMENT BI-RADS 1: NEGATIVE. RECOMMEND ANNUAL MAMMOGRAPHIC SCREENING. RECOMMENDATION: Routine annual follow-up in 1 Year A letter with findings and recommendations will be mailed to the patient. Reading Location: [id number]
--- NOTE | 2025-03-11 14:55 | BD_ITS ---
PROCEDURE: DEXA BONE DENSITY STUDY 03/11/2025 REASON FOR EXAM: F, age 69 y/o . Postmenopausal. TECHNIQUE: DEXA BONE DENSITY STUDY COMPARISON: Prior study dated July 15, 2019 FINDINGS: BMD and T-SCORES Lumbar spine: 0.828 g/cm2, T-score -1.6 Levels: L1 through L4 Change from prior: Loss of 6%. Left femoral neck: 0.620 g/cm2, T-score -2.1 Femoral neck comparison data not recommended for monitoring change. Left total hip: 0.697 g/cm2, T-score -2.0 Change from prior: Loss of 2.9%. Right femoral neck: 0.644 g/cm2, T-score -1.8 Femoral neck comparison data not recommended for monitoring change. Right total hip: 0.662 g/cm2, T-score -2.3 Change from prior: Loss of 2.2%. The World Health Organization has defined the following categories based on bone density: Normal bone density: T-score equal to or greater than -1.0 Osteopenia: T-score between -1.0 and -2.5 Osteoporosis: T-score equal to or less than -2.5 The patient does meet the pharmacological treatment recommendations for prevention of osteoporosis. BD/Dexa Bone Density Study IMPRESSION: OSTEOPENIA. Recommend follow-up as clinically warranted. Reading Location: [id number]
== END | disposition home or self-care (01) ==
LOC: OPBD 14:34
PROVIDERS: PCP Family Medicine
DX: Z12.31 Encounter for screening mammogram for malignant neoplasm of breast (principal); Z78.0 Asymptomatic menopausal state; Z13.820 Encounter for screening for osteoporosis
CPT/HCPCS: 77063; 77067; 77080

== ENCOUNTER → 2025-03-25 | Outpatient (CLI) | payer MEDICARE, SELFPAY ==
[2025-03-25 11:32] LABS: Cholesterol 303 mg/dL (<=200); Low Density Lipoprotein Calc. 179 mg/dL; Triglycerides 263 mg/dL; Very Low Density Lipoprotein 53 mg/dL (5-40); cholesterol:hdl ratio screen 4.23
== END | disposition home or self-care (01) ==
PROVIDERS: PCP Family Medicine
DX: Z13.1 Encounter for screening for diabetes mellitus (principal); Z13.220 Encounter for screening for lipoid disorders
CPT/HCPCS: 36415; 80061; 83036

== ENCOUNTER → 2025-05-19 | Outpatient (CLI) | payer MEDICARE, SELFPAY ==
[2025-05-19 08:35] LABS: Mucous, Urine 0 SEEN /hpf (<or=2+); Red Blood Cells-Urine 0 SEEN /hpf (0-5)
[2025-05-19 10:36] LABS: Hematocrit 43.7 % (37-47); Hemoglobin 14.7 g/dL (12.0-15.0); Immature Granulocytes Count 0.030 X10^3/uL (0.0-0.0); Mean Corp Hgb Conc 33.6 g/dL (32-36); Mean Corpuscular Volume 90.3 fL (81-99); Mean Platelet Vol. 10.0 fl (6.2-12.0); NRBC Flagged by Analyzer 0 % (0-5); Platelet Count 193 K/mm3 (150-450); RBC Distribution Width CV 12.1 % (11.6-14.6); RBC Distribution Width SD 39.8 fl (35.1-43.9); Red Blood Count 4.84 M/mm3 (4.2-5.4); White Blood Count 8.7 K/mm3 (4.4-11.0)
[2025-05-19 10:55] LABS: Color, Urine Yellow (Yellow); Glucose, Dipstick Normal (Normal); Ketone-Dipstick Negative (Negative); Leukocyte Esterase-Dipstick 500 /ul (Negative); Nitrite-Dipstick Negative (Negative); Occult Blood-Urine 10 /ul (Negative); Protein-Dipstick 30 mg/dl (Negative); Specific Gravity, Urine 1.015 (1.002-1.030); Urine Bilirubin Dipstick Negative (Negative)
[2025-05-19 11:23] LABS: Squamous Epithelial Cells - UA 0-5 SEEN /hpf (5-10)
[2025-05-19 11:55] LABS: AST(SGOT) 33 U/L (<=31); Alanine Aminotransfer ALT/SGPT 39 U/L (<=34); Albumin, Serum 4.0 g/dL (3.4-4.8); Alkaline Phosphatase 129 U/L (35-104); Anion Gap 15 (5-15); BUN 12 mg/dL (4-19); BUN/Creat Ratio 17.5 RATIO (10-20); Calcium,Total 9.7 mg/dL (7.6-11.0); Carbon Dioxide 19.8 mmol/L (21.0-32.0); Chloride 101 mmol/L (98-108); Cholesterol 178 mg/dL (<=200); Globulin 3.0 g/dL (2.2-4.2); Glucose 92 mg/dL (70-99); Low Density Lipoprotein Calc. 55 mg/dL; Potassium 4.4 mmol/L (3.3-5.1); Triglycerides 243 mg/dL; Very Low Density Lipoprotein 49 mg/dL (5-40); cholesterol:hdl ratio screen 2.39
== END | disposition home or self-care (01) ==
LOC: MTLAB 08:29
PROVIDERS: PCP Family Medicine; Referring Provider Family Medicine; Visit Provider Family Medicine
DX: R82.81 Pyuria (principal); R73.03 Prediabetes; M85.80 Other specified disorders of bone density and structure, unspecified site; I10 Essential (primary) hypertension
CPT/HCPCS: 36415; 80053; 80061; 81001; 83036; 85025; 87077; 87086; 87088; 87186